=== PATIENT | male | born 1955 | race Caucasian/White ===

== ENCOUNTER 2017-04-06 22:24 | Emergency (ER) | payer SELFPAY ==
[~2017-04-06] VITALS: Ht 170.2 cm; Wt 60.0 kg
[2017-04-06 22:30] VITALS: BP 105/68; PULSE 89; RESP 18; TEMP 98.2; O2SAT 98
[2017-04-06] MEDS ORDERED: SODIUM CHLOR 0.9% 1000 ML INJ 1,000 ML IV SCH (22:41)
[2017-04-06 22:45] VITALS: O2SAT 97
[2017-04-06] MEDS ORDERED: SODIUM CHLORIDE 0.9% FLUSH 10 ML FLUSH IV FLUSH PRN (22:45)
[2017-04-06] MEDS ORDERED: THIAMINE INJ 100 MG in SODIUM CHLORIDE 0.9% INJ 100 ML IV ONE (22:45)
--- NOTE | 2017-04-06 22:46 | PD ---
HPI Chief Complaint: Alcohol/Drug Intoxication Time Seen by Provider: 22:41 Travel History International Travel<30 days: No Contact w/Intl Traveler<30days: No Traveled to known affect area: No History of Present Illness HPI The patient is a 7-year-old homeless male alcoholic who was in a bar today and got too drunk so that the credit authorizer called the ambulance to get rid of the patient. He denies any injury and is cooperative. Later, the patient states he fell and hit his right occipital area of the skull. He denies any C-spine, T -spine or LS-spine tenderness. The patient denies drinking any alcohol at all. The patient is wheelchair dependent. PFSH Past Medical History COPD: Yes Diminished Hearing: No Deep Vein Thrombosis: Yes (BILATERAL UPPER EXTREMITIES) GERD: Yes Hiatal Hernia: Yes Migraines: Yes Pancreatitis: Yes Seizures: Yes Past Surgical History Abdominal Surgery: Yes (HIATAL HERNIA REPAIR) Social History Alcohol Use: Yes (OCCASIONAL) Tobacco Use: Yes (03/10 PPD) Substance Use: No Allergies-Medications (Allergen,Severity, Reaction): Coded Allergies: acetaminophen (Unverified Allergy, Severe, 04/06/17) ampicillin (Unverified Allergy, Severe, 04/06/17) aspirin (Unverified Allergy, Severe, 04/06/17) butorphanol (Unverified Allergy, Severe, 04/06/17) chlordiazepoxide (Unverified Allergy, Severe, 04/06/17) codeine (Unverified Allergy, Severe, 04/06/17) diazepam (Unverified Allergy, Severe, 04/06/17) divalproex sodium (Unverified Allergy, Severe, 04/06/17) droperidol (Unverified Allergy, Severe, 04/06/17) hydrocodone (Unverified Allergy, Severe, 04/06/17) hydromorphone (Unverified Allergy, Severe, 04/06/17) hydroxyzine (Unverified Allergy, Severe, 04/06/17) ketorolac (Unverified Allergy, Severe, 04/06/17) lidocaine (Unverified Allergy, Severe, 04/06/17) lorazepam (Unverified Allergy, Severe, 04/06/17) methylprednisolone (Unverified Allergy, Severe, 04/06/17) metoclopramide (Unverified Allergy, Severe, 04/06/17) nalbuphine (Unverified Allergy, Severe, 04/06/17) ondansetron (Unverified Allergy, Severe, 04/06/17) oxycodone (Unverified Allergy, Severe, 04/06/17) penicillin G (Unverified Allergy, Severe, 04/06/17) procaine (Unverified Allergy, Severe, 04/06/17) prochlorperazine (Unverified Allergy, Severe, 04/06/17) propranolol (Unverified Allergy, Severe, 04/06/17) sumatriptan (Unverified Allergy, Severe, 04/06/17) tramadol (Unverified Allergy, Severe, 04/06/17) zolmitriptan (Unverified Allergy, Severe, 04/06/17) Reported Meds & Prescriptions Reported Meds & Active Scripts Active No Active Prescriptions or Reported Medications Review of Systems Except as stated in HPI: all other systems reviewed are Neg Physical Exam Exam Limitations: Intoxication Narrative GENERAL: The patient is alert and somewhat cooperative, intoxicated appearing in minimal apparent distress. He usually falls asleep but is easily arousable. SKIN: Focused skin assessment warm/dry. HEAD: There is tenderness without any associated deformity of the right occipital area. Normocephalic. EYES: Pupils equal and round. No scleral icterus. No injection or drainage. ENT: No nasal bleeding or discharge. Mucous membranes pink and moist. Neither tympanic membrane can be seen due to wax in both canals. There is neither raccoon eyes nor waters sign present. NECK: Trachea midline. No JVD. No C-spine tenderness or deformity is noted. CARDIOVASCULAR: Regular rate and rhythm. No murmur appreciated. RESPIRATORY: No accessory muscle use. Clear to auscultation. Breath sounds equal bilaterally. GASTROINTESTINAL: Abdomen soft, non-tender, nondistended. Hepatic and splenic margins not palpable. MUSCULOSKELETAL: No obvious deformities. No clubbing. No cyanosis. No edema. No T-spine or LS-spine tenderness or deformity is noted. NEUROLOGICAL: Awake and alert. No obvious cranial nerve deficits. Motor grossly within normal limits. Normal speech. PSYCHIATRIC: Appropriate mood and affect; insight and judgment normal. Data Data Last Documented VS Vital Signs Date Time Temp Pulse Resp B/P (MAP) Pulse Ox O2 Delivery O2 Flow Rate FiO2 04/06/17 23:18 Room Air 04/06/17 22:30 98.2 89 18 105/68 (80) 98 Orders Orders Complete Blood Count With Diff (04/06/17 22:41) Comprehensive Metabolic Panel (04/06/17 22:41) Blood Glucose (04/06/17 22:41) Ecg Monitoring (04/06/17 22:41) Iv Access Insert/Monitor (04/06/17 22:41) Oximetry (04/06/17 22:41) Sodium Chloride 0.9% Flush (Ns Flush) (04/06/17 22:45) Sodium Chlor 0.9% 1000 Ml Inj (Ns 1000 M (04/06/17 22:41) Thiamine Inj (Thiamine Inj) (04/06/17 22:45) Alcohol (Ethanol) (04/06/17 22:41) Ct Brain W/O Iv Contrast(Rout) (04/06/17 22:46) Labs Laboratory Tests Test 04/06/17 23:12 White Blood Count 6.3 TH/MM3 Red Blood Count 4.62 MIL/MM3 Hemoglobin 16.0 GM/DL Hematocrit 46.9 % Mean Corpuscular Volume 101.6 FL Mean Corpuscular Hemoglobin 34.6 PG Mean Corpuscular Hemoglobin Concent 34.1 % Red Cell Distribution Width 17.0 % Platelet Count 191 TH/MM3 Mean Platelet Volume 7.3 FL Neutrophils (%) (Auto) 55.0 % Lymphocytes (%) (Auto) 31.1 % Monocytes (%) (Auto) 9.2 % Eosinophils (%) (Auto) 4.3 % Basophils (%) (Auto) 0.4 % Neutrophils # (Auto) 3.5 TH/MM3 Lymphocytes # (Auto) 1.9 TH/MM3 Monocytes # (Auto) 0.6 TH/MM3 Eosinophils # (Auto) 0.3 TH/MM3 Basophils # (Auto) 0.0 TH/MM3 CBC Comment DIFF FINAL Differential Comment Blood Urea Nitrogen 9 MG/DL Creatinine 0.82 MG/DL Random Glucose 91 MG/DL Total Protein 6.8 GM/DL Albumin 3.8 GM/DL Calcium Level 8.1 MG/DL Alkaline Phosphatase 99 U/L Aspartate Amino Transf (AST/SGOT) 23 U/L Alanine Aminotransferase (ALT/SGPT) 22 U/L Total Bilirubin 0.5 MG/DL Sodium Level 138 MEQ/L Potassium Level 3.3 MEQ/L Chloride Level 103 MEQ/L Carbon Dioxide Level 28.1 MEQ/L Anion Gap 7 MEQ/L Estimat Glomerular Filtration Rate 96 ML/MIN Ethyl Alcohol Level 286 MG/DL [facility] Medical Decision Making Medical Screen Exam Complete: Yes Emergency Medical Condition: Yes Medical Record Reviewed: Yes Interpretation(s) The CT brain shows no acute intercranial abnormality. There is mucosal thickening in the left maxillary sinus, left ethmoid air cells. The CBC is normal except for an elevated MCV the and MCH consistent with chronic alcohol abuse. The alcohol level was 286. The complete metabolic profile shows potassium of 3.3, calcium 8.1 but is otherwise unremarkable. Differential Diagnosis Alcohol intoxication, electrolyte disorder, hepatic encephalopathy, intracranial bleed, skull fracture Narrative Course The patient has alcohol intoxication. He is obviously untruthful about his alcohol intake, he denied drinking any alcohol at all. He has no evidence for any intracranial bleed or skull fracture. Diagnosis Primary Impression: Alcohol intoxication Additional Instructions: Discontinue alcohol. If you have problems doing this use [facility]. Scripts No Active Prescriptions or Reported Meds Disposition: 01 DISCHARGE HOME Condition: Stable Cody Rizo MD Apr 06, 2017 22:46
[2017-04-06 23:42] LABS: AUTOMATED NEUTROPHIL # 3.5 TH/MM3 (1.8-7.7); BASOPHIL % 0.4 % (0.0-2.0); EOSINOPHIL # 0.3 TH/MM3 (0-0.4); EOSINOPHIL % 4.3 % (0.0-4.0); HEMATOCRIT 46.9 % (39.0-51.0); LYMPH % 31.1 % (9.0-44.0); LYMPHOCYTE # 1.9 TH/MM3 (1.0-4.8); MEAN CELL VOLUME 101.6 FL (80.0-100.0); MEAN CORPUSCULAR HEMOGLOBIN 34.6 PG (27.0-34.0); MEAN CORPUSCULAR HGB CONC 34.1 % (32.0-36.0); MEAN PLATELET VOLUME 7.3 FL (7.0-11.0); MONO % 9.2 % (0.0-8.0); MONOCYTE # 0.6 TH/MM3 (0-0.9); PLATELET COUNT 191 TH/MM3 (150-450); RED BLOOD COUNT 4.62 MIL/MM3 (4.50-5.90); WHITE BLOOD COUNT 6.3 TH/MM3 (4.0-11.0)
[2017-04-06 23:57] LABS: CHLORIDE 103 MEQ/L (98-107); SODIUM (NA) 138 MEQ/L (136-145)
[2017-04-07] LABS: CALCIUM 8.1 MG/DL (8.5-10.1)
[2017-04-07 00:01] LABS: ALBUMIN 3.8 GM/DL (3.4-5.0); BICARBONATE 28.1 MEQ/L (21.0-32.0); BLOOD UREA NITROGEN 9 MG/DL (7-18); GLUCOSE,RANDOM 91 MG/DL (74-106)
[2017-04-07 00:04] VITALS: BP 110/62; PULSE 87; RESP 18; O2SAT 98
[2017-04-07 00:04] LABS: ALT (GPT) 22 U/L (12-78); AST (GOT) 23 U/L (15-37); CREATININE 0.82 MG/DL (0.60-1.30); GLOMERULAR FILTRATION RATE 96 ML/MIN (>89)
[2017-04-07 00:05] LABS: TOTAL BILIRUBIN ADULT 0.5 MG/DL (0.2-1.0); TOTAL PROTEIN 6.8 GM/DL (6.4-8.2)
[2017-04-07 00:06] LABS: ALKALINE PHOSPHATASE 99 U/L (45-117)
--- NOTE | 2017-04-07 00:50 | RADRPT ---
EXAM DATE/TIME: 04/07/2017 00:06 [facility] COMPARISON: No previous studies available for comparison. INDICATIONS : Trauma, fall. RADIATION DOSE: 60.84 CTDIvol (mGy) MEDICAL HISTORY : None SURGICAL HISTORY : None. ENCOUNTER: Initial ACUITY: 1 day PAIN SCALE: 0/10 LOCATION: cranial TECHNIQUE: Multiple contiguous axial images were obtained of the head. Using automated exposure control and adj ustment of the mA and/or kV according to patient size, radiation dose was kept as low as reasonably a chievable to obtain optimal diagnostic quality images. DICOM format image data is available electro nically for review and comparison. FINDINGS: CEREBRUM: The ventricles are normal for age. No evidence of midline shift, mass lesion, hemorrhage or acute in farction. No extra-axial fluid collections are seen. POSTERIOR FOSSA: The cerebellum and brainstem are intact. The 4th ventricle is midline. The cerebellopontine angle i s unremarkable. EXTRACRANIAL: The visualized portion of the orbits is intact. SKULL: The calvaria is intact. No evidence of skull fracture. CONCLUSION: 1. No acute intracranial abnormalities. Mucosal thickening in the left maxillary sinus left ethmoid a ir cells. Andreas Ramirez MD on April 07, 2017 at 0:45 Board Certified Radiologist. This report was verified electronically.
[2017-04-07 05:00] VITALS: BP 111/63; TEMP 98.2
== END 2017-04-07 05:04 | disposition home or self-care (01) ==
LOC: PHED 22:24
DX: F10.129 Alcohol abuse with intoxication, unspecified (principal); F17.200 Nicotine dependence, unspecified, uncomplicated; Y90.8 Blood alcohol level of 240 mg/100 ml or more
CPT/HCPCS: 70450; 80053; 80307; 85025

== ENCOUNTER 2017-04-08 01:14 | Emergency (ER) | payer SELFPAY ==
[~2017-04-08] VITALS: Ht 182.9 cm; Wt 70.5 kg
[2017-04-08 01:19] VITALS: BP 124/76; PULSE 112; RESP 16; TEMP 98.9; O2SAT 96
[2017-04-08] MEDS ORDERED: PROMETHAZINE HCL 25 MG TAB PO ONE (02:00)
[2017-04-08] MEDS ORDERED: MORPHINE SULFATE 30 MG TAB PO ONE (02:00)
--- NOTE | 2017-04-08 02:00 | PD ---
HPI Chief Complaint: Edema Time Seen by Provider: 01:51 Travel History International Travel<30 days: No Contact w/Intl Traveler<30days: No Traveled to known affect area: No History of Present Illness HPI Patient is a 61-year-old homeless male with a history of diabetes presents emergency department with bilateral lower extremity swelling which he states he gets from his diabetes and the pain is severe. He states he is allergic to Tylenol and ibuprofen and only morphine and Phenergan work for him. He denies any chest pain shortness of breath abdominal pain nausea or vomiting today. Denies any history of orthopnea, he is wheelchair-bound secondary to chronic pain of his lower extremities but his doctors are telling him to walk more often. Symptoms are moderate, lower extremities, associated signs symptoms and contacts as above PFSH Past Medical History Cardiovascular Problems: Yes (MT x4) COPD: Yes Diabetes: Yes Patient Takes Glucophage: Yes Diminished Hearing: No Deep Vein Thrombosis: Yes (BILATERAL UPPER EXTREMITIES) GERD: Yes Hiatal Hernia: Yes Respiratory: Yes (COPD) Migraines: Yes Myocardial Infarction: Yes Pancreatitis: Yes Seizures: Yes Tetanus Vaccination: > 5 Years Influenza Vaccination: No Past Surgical History Abdominal Surgery: Yes (HIATAL HERNIA REPAIR) Social History Alcohol Use: Yes (OCCASIONAL) Tobacco Use: Yes (03/10 PPD) Substance Use: No Allergies-Medications (Allergen,Severity, Reaction): Coded Allergies: acetaminophen (Unverified Allergy, Severe, 04/06/17) ampicillin (Unverified Allergy, Severe, 04/06/17) aspirin (Unverified Allergy, Severe, 04/06/17) butorphanol (Unverified Allergy, Severe, 04/06/17) chlordiazepoxide (Unverified Allergy, Severe, 04/06/17) codeine (Unverified Allergy, Severe, 04/06/17) diazepam (Unverified Allergy, Severe, 04/06/17) divalproex sodium (Unverified Allergy, Severe, 04/06/17) droperidol (Unverified Allergy, Severe, 04/06/17) hydrocodone (Unverified Allergy, Severe, 04/06/17) hydromorphone (Unverified Allergy, Severe, 04/06/17) hydroxyzine (Unverified Allergy, Severe, 04/06/17) ketorolac (Unverified Allergy, Severe, 04/06/17) lidocaine (Unverified Allergy, Severe, 04/06/17) lorazepam (Unverified Allergy, Severe, 04/06/17) methylprednisolone (Unverified Allergy, Severe, 04/06/17) metoclopramide (Unverified Allergy, Severe, 04/06/17) nalbuphine (Unverified Allergy, Severe, 04/06/17) ondansetron (Unverified Allergy, Severe, 04/06/17) oxycodone (Unverified Allergy, Severe, 04/06/17) penicillin G (Unverified Allergy, Severe, 04/06/17) procaine (Unverified Allergy, Severe, 04/06/17) prochlorperazine (Unverified Allergy, Severe, 04/06/17) propranolol (Unverified Allergy, Severe, 04/06/17) sumatriptan (Unverified Allergy, Severe, 04/06/17) tramadol (Unverified Allergy, Severe, 04/06/17) zolmitriptan (Unverified Allergy, Severe, 04/06/17) Reported Meds & Prescriptions Reported Meds & Active Scripts Active No Active Prescriptions or Reported Medications Review of Systems Except as stated in HPI: all other systems reviewed are Neg Physical Exam Narrative GENERAL: Well-nourished, well-developed patient. SKIN: Focused skin assessment warm/dry. HEAD: Normocephalic. EYES: No scleral icterus. No injection or drainage. NECK: Supple, trachea midline. No JVD or lymphadenopathy. CARDIOVASCULAR: Regular rate and rhythm without murmurs, gallops, or rubs. RESPIRATORY: Breath sounds equal bilaterally. No accessory muscle use. GASTROINTESTINAL: Abdomen soft, non-tender, nondistended. MUSCULOSKELETAL: No cyanosis, or bilateral lower extremity edema from the mid tibia distally. Pulses motor and sensory intact distally in all 4 extremities. No gross deformity BACK: Nontender without obvious deformity. No CVA tenderness. Data Data Last Documented VS Vital Signs Date Time Temp Pulse Resp B/P (MAP) Pulse Ox O2 Delivery O2 Flow Rate FiO2 04/08/17 06:49 78 18 127/78 (94) 100 Nasal Cannula 2.00 04/08/17 01:19 98.9 Orders Orders Us Leg Venous Doppler Bilat (04/08/17 01:57) Morphine Ir (Msir) (04/08/17 02:00) Promethazine (Phenergan) (04/08/17 02:00) Ed Discharge Order (04/08/17 03:51) [facility] Medical Decision Making Medical Screen Exam Complete: Yes Emergency Medical Condition: Yes Differential Diagnosis DVT possible but seems unlikely, chronic dependent edema, CHF unlikely, poor social circumstance. Narrative Course Patient roomed in the emergency department given morphine and Phenergan per his request as he has multiple other allergies. He appears to have no medical complaint that warrants extensive workup, Last 24 hours Impressions Lower Extremity Ultrasound 04/08/17 0157 Signed Impressions: Service Date/Time: Saturday, April 08, 2017 02:59 - CONCLUSION: Normal examination. Nate Elkins MD On reassessment the patient sleeping soundly, is tolerated p.o. in the emergency department. Will be discharged to follow-up with his primary care provider at the [facility]. Diagnosis Primary Impression: Leg swelling Referrals: [facility] No Active Prescriptions or Reported Meds Disposition: 01 DISCHARGE HOME Condition: Nasir Thomas MD Apr 08, 2017 02:00
--- NOTE | 2017-04-08 03:33 | RADRPT ---
EXAM DATE/TIME: 04/08/2017 02:59 [facility] COMPARISON: No previous studies available for comparison. INDICATIONS : Bilateral leg swelling. MEDICAL HISTORY : Myocardial infarction. Deep venous thrombosis. Parkinson's. CVA x5. Seizures. Migraines. COPD. Hiatal hernia. Diabetes. GERD. Tobacco use. Anticoagulant therapy, Lovenox. SURGICAL HISTORY : Hiatal hernia repair. ENCOUNTER: Initial ACUITY: 1 week PAIN SCORE: 10/10 LOCATION: Bilateral leg. TECHNIQUE: Venous ultrasound of the left and right leg was performed from the inguinal ligament to the proximal calf. Real-time, color Doppler and spectral tracing, compression and augmentation techniques were us ed. FINDINGS: RIGHT LEG: There is normal compressibility of the deep venous system from the inguinal region to the proximal ca lf. No echogenic clot is seen in the lumen of the common femoral, femoral, popliteal, and posterior tibial veins. There is a normal response of the venous system to proximal and distal augmentation an d respiration. LEFT LEG: There is normal compressibility of the deep venous system from the inguinal region to the proximal ca lf. No echogenic clot is seen in the lumen of the common femoral, femoral, popliteal, and posterior tibial veins. There is a normal response of the venous system to proximal and distal augmentation an d respiration. CONCLUSION: Normal examination. Nate Elkins MD on April 08, 2017 at 3:31 Board Certified Radiologist. This report was verified electronically.
[2017-04-08 06:49] VITALS: BP 127/78; PULSE 78; RESP 18; O2SAT 100
[2017-04-08 07:30] VITALS: BP 116/73; PULSE 67; RESP 18; O2SAT 94
== END 2017-04-08 08:44 | disposition home or self-care (01) ==
LOC: NEPE 01:14
DX: M79.89 Other specified soft tissue disorders (principal); J44.9 Chronic obstructive pulmonary disease, unspecified; E11.9 Type 2 diabetes mellitus without complications; I25.2 Old myocardial infarction; G89.29 Other chronic pain; G20 Parkinson's disease; F17.210 Nicotine dependence, cigarettes, uncomplicated; Z86.73 Personal history of transient ischemic attack (TIA), and cerebral infarction without residual deficits; Z86.718 Personal history of other venous thrombosis and embolism; Z88.6 Allergy status to analgesic agent; Z88.0 Allergy status to penicillin; Z88.8 Allergy status to other drugs, medicaments and biological substances
CPT/HCPCS: 93970; 99284; Q0169

== ENCOUNTER 2017-04-12 00:13 | Emergency (ER) | payer SELFPAY ==
[2017-04-12 00:16] VITALS: BP 127/68; PULSE 84; RESP 18; TEMP 97.8; O2SAT 96
[2017-04-12] MEDS ORDERED: VENTAER INH (01:46)
[2017-04-12] MEDS ORDERED: DILA30CA PO (01:46)
--- NOTE | 2017-04-12 01:55 | PD ---
HPI Chief Complaint: Edema Time Seen by Provider: 01:16 Travel History International Travel<30 days: No Contact w/Intl Traveler<30days: No Traveled to known affect area: No History of Present Illness HPI The patient is a 61 year old male who presents to the [facility] emergency department with a history of lower extremity edema, pain, burning that has been gradually getting worse with time. The patient was last seen in the emergency department regarding the symptoms on April 08, 2017. The patient had a bilateral lower extremity ultrasound of the legs done at that time that was negative for DVT. The patient reports that he is visiting from [place]. He reports that he has been here for the last 6-1/2-7 months. He reports that his aunt and uncle are saving up money to get him back home on an [employer] train. The patient reports that he is out of all of his medications. He tried to follow up with the [facility], however he was unable to do so because they would not take his insurance according to his report. Review of systems otherwise, the patient denies having any known recent fevers, cough, congestion , neck pain, chest pain, shortness of breath, abdominal pain, vomiting, diarrhea , urinary symptoms, or other neurologic symptoms. [facility] Past Medical History Narrative Medical The patient's past medical history is significant for stuttering, history of COPD and asthma, history of DVT of his upper extremities, acid reflux, pancreatitis, history of a hiatal hernia status post repair, history of seizure disorder. Cardiovascular Problems: Yes ([place] x4) COPD: Yes Diabetes: Yes Patient Takes Glucophage: No Diminished Hearing: No Deep Vein Thrombosis: Yes (BILATERAL UPPER EXTREMITIES) GERD: Yes Hiatal Hernia: Yes Respiratory: Yes (COPD) Migraines: Yes Myocardial Infarction: Yes Pancreatitis: Yes Seizures: Yes Past Surgical History Narrative Surgical The patient's past surgical history is significant for hiatal hernia repair, 2 toes that were amputated from the left foot. Abdominal Surgery: Yes (HIATAL HERNIA REPAIR) Social History Alcohol Use: Yes (1-2 beers per day) Tobacco Use: Yes (1/2 PPD) Substance Use: No Allergies-Medications (Allergen,Severity, Reaction): Coded Allergies: acetaminophen (Unverified Allergy, Severe, 04/12/17) ampicillin (Unverified Allergy, Severe, 04/12/17) aspirin (Unverified Allergy, Severe, 04/12/17) butorphanol (Unverified Allergy, Severe, 04/12/17) chlordiazepoxide (Unverified Allergy, Severe, 04/12/17) codeine (Unverified Allergy, Severe, 04/12/17) diazepam (Unverified Allergy, Severe, 04/12/17) divalproex sodium (Unverified Allergy, Severe, 04/12/17) droperidol (Unverified Allergy, Severe, 04/12/17) hydrocodone (Unverified Allergy, Severe, 04/12/17) hydromorphone (Unverified Allergy, Severe, 04/12/17) hydroxyzine (Unverified Allergy, Severe, 04/12/17) ketorolac (Unverified Allergy, Severe, 04/12/17) lidocaine (Unverified Allergy, Severe, 04/12/17) lorazepam (Unverified Allergy, Severe, 04/12/17) methylprednisolone (Unverified Allergy, Severe, 04/12/17) metoclopramide (Unverified Allergy, Severe, 04/12/17) nalbuphine (Unverified Allergy, Severe, 04/12/17) ondansetron (Unverified Allergy, Severe, 04/12/17) oxycodone (Unverified Allergy, Severe, 04/12/17) penicillin G (Unverified Allergy, Severe, 04/12/17) procaine (Unverified Allergy, Severe, 04/12/17) prochlorperazine (Unverified Allergy, Severe, 04/12/17) propranolol (Unverified Allergy, Severe, 04/12/17) sumatriptan (Unverified Allergy, Severe, 04/12/17) tramadol (Unverified Allergy, Severe, 04/12/17) zolmitriptan (Unverified Allergy, Severe, 04/12/17) Reported Meds & Prescriptions Reported Meds & Active Scripts Active Gabapentin 100 Mg Cap 100 Mg PO TID Reported Ventolin Hfa 18 GM Inh (Albuterol Sulfate) 90 Mcg/Act Aer 2 Puff INH Q4-6H PRN Dilantin (Phenytoin Extended) 30 Mg Cap 30 Mg PO TID Review of Systems Except as stated in HPI: all other systems reviewed are Neg General / Constitutional: No: Fever Eyes: No: Visual changes HENT: No: Headaches Cardiovascular: No: Chest Pain or Discomfort Respiratory: No: Shortness of Breath Gastrointestinal: No: Nausea, Vomiting, Diarrhea, Abdominal Pain Genitourinary: No: Dysuria Musculoskeletal: Positive: Edema, Pain Skin: No Rash Neurologic: Positive: Paresthesia, No: Weakness, Focal Abnormalities, Change in Mentation, Slurred Speech, Sensory Disturbance Psychiatric: No: Depression Endocrine: No: Polydipsia Hematologic/Lymphatic: No: Easy Bruising Physical Exam Narrative General: The patient is a well-developed well-nourished male in no acute distress. The patient is disheveled appearing on examination. The patient has a motorized chair at the bedside. Head and Neck exam: Head is normocephalic atraumatic. Eyes: EOMI, pupils are equal round and reactive to light. Nose: Midline septum with pink mucous membranes Mouth: Dentition unremarkable. Moist mucus membranes. Posterior oropharynx is not erythematous. No tonsillar hypertrophy. Uvula midline. Airway patent. Neck: No palpable lymphadenopathy. No nuchal rigidity. No thyromegaly. Cardiovascular: Regular rate and rhythm without murmurs, gallops, or rubs. Lungs: Clear to auscultation bilaterally. No wheezes, rhonchi, or rales. Abdomen: Soft, without tenderness to palpation in all 4 quadrants of the abdomen. No guarding, rebound, or rigidity. Normal bowel sounds are audible. No tenderness on palpation of McBurney's point. Extremities: No clubbing or cyanosis. The patient has trace pedal edema bilateral lower extremities. 2+ pulses in all 4 extremities. Less than 3 second capillary refill. The patient is missing 2 digits of the right foot. The patient is noted to have thickened toenails on bilateral feet consistent with onychomycosis. The patient has dry flaky skin on bilateral feet. No increased warmth or crepitus on palpation. Back: No spinous process tenderness to palpation. No costovertebral angle tenderness to palpation. Neurologic Exam: Grossly nonfocal. The patient has stuttering speech. Skin Exam: No rash noted. Intact skin that is warm and dry. Data Data Last Documented VS Vital Signs Date Time Temp Pulse Resp B/P (MAP) Pulse Ox O2 Delivery O2 Flow Rate FiO2 2/6/18 00:16 97.8 84 18 127/68 (87) 96 Orders Orders Electrocardiogram (04/12/17 01:18) Complete Blood Count With Diff (04/12/17 01:18) Comprehensive Metabolic Panel (04/12/17 01:18) B-Type Natriuretic Peptide (04/12/17 01:18) Urinalysis - C+S If Indicated (04/12/17 01:18) Thyroid Stimulating Hormone (04/12/17 01:18) Iv Access Insert/Monitor (04/12/17 01:18) Ecg Monitoring (04/12/17 01:18) Oximetry (04/12/17 01:18) Prothrombin Time / Inr (Pt) (04/12/17 01:47) Act Partial Throm Time (Ptt) (04/12/17 01:47) Phenytoin (Dilantin) (04/12/17 02:00) Gabapentin (Neurontin) (04/12/17 03:15) Potassium Chloride (Kcl) (04/12/17 03:15) Labs Laboratory Tests Test 04/12/17 02:00 04/12/17 02:20 White Blood Count 4.6 TH/MM3 Red Blood Count 4.55 MIL/MM3 Hemoglobin 16.2 GM/DL Hematocrit 46.0 % Mean Corpuscular Volume 101.1 FL Mean Corpuscular Hemoglobin 35.6 PG Mean Corpuscular Hemoglobin Concent 35.3 % Red Cell Distribution Width 16.6 % Platelet Count 199 TH/MM3 Mean Platelet Volume 6.6 FL Neutrophils (%) (Auto) 42.7 % Lymphocytes (%) (Auto) 39.7 % Monocytes (%) (Auto) 10.6 % Eosinophils (%) (Auto) 6.0 % Basophils (%) (Auto) 1.0 % Neutrophils # (Auto) 1.9 TH/MM3 Lymphocytes # (Auto) 1.8 TH/MM3 Monocytes # (Auto) 0.5 TH/MM3 Eosinophils # (Auto) 0.3 TH/MM3 Basophils # (Auto) 0.0 TH/MM3 CBC Comment DIFF FINAL Differential Comment Blood Urea Nitrogen 7 MG/DL Creatinine 0.84 MG/DL Random Glucose 81 MG/DL Total Protein 7.9 GM/DL Albumin 4.3 GM/DL Calcium Level 8.8 MG/DL Alkaline Phosphatase 130 U/L Aspartate Amino Transf (AST/SGOT) 39 U/L Alanine Aminotransferase (ALT/SGPT) 28 U/L Total Bilirubin 0.6 MG/DL Sodium Level 138 MEQ/L Potassium Level 3.3 MEQ/L Chloride Level 101 MEQ/L Carbon Dioxide Level 31.8 MEQ/L Anion Gap 5 MEQ/L Estimat Glomerular Filtration Rate 93 ML/MIN B-Type Natriuretic Peptide 44 PG/ML Thyroid Stimulating Hormone 3rd Gen 1.870 uIU/ML Phenytoin (Dilantin) Level 0.6 MCG/ML Urine Color COLORLESS Urine Turbidity CLEAR Urine pH 6.5 Urine Specific [place] 1.001 Urine Protein NEG mg/dL Urine Glucose (UA) NEG mg/dL Urine Ketones NEG mg/dL Urine Occult Blood NEG Urine Nitrite NEG Urine Bilirubin NEG Urine Urobilinogen LESS THAN 2.0 MG/DL Urine Leukocyte Esterase NEG Urine RBC 1 /hpf Urine WBC 1 /hpf Microscopic Urinalysis Comment CULT NOT INDICATED MDM Medical Decision Making Medical Screen Exam Complete: Yes Emergency Medical Condition: Yes Medical Record Reviewed: Yes Differential Diagnosis DVT, versus hypoalbuminemia from poor nutrition, versus cellulitis, versus hypothyroid disorder, versus congestive heart failure, versus peripheral neuropathy Narrative Course During the course of the patient's emergency department visit, the patient's history, examination, and differential diagnosis were reviewed with the patient. The patient was placed on a leather sorter with oximetry and frequent blood pressure monitoring. The patient had IV access obtained and blood work sent for analysis. The patient had an EKG done that shows a sinus rhythm heart rate of 77, no acute ST segment elevation. QRS duration is 97 ms, QTC 444 milliseconds. The patient was initially provided gabapentin 100 mg p.o. 1. The patient's laboratory studies were reviewed and remarkable for a white count of 4.6, hemoglobin 16.2, platelets 199 with 10.6 monocytes, CMP is remarkable for potassium of 3.3 which was supplemented orally, AST 39, alk phos 130, albumin 4.3, TSH 1.87, BNP 44, Dilantin level 0.6, urinalysis is unremarkable The patient's electronic medical record was reviewed and on April 08 the patient had bilateral lower extremity ultrasounds that were negative for DVT. The patient's symptoms are most consistent with a peripheral neuropathy, possibly related to alcohol intake. I recommended that he decrease his alcohol intake. The patient was given a prescription for gabapentin and instructed to follow-up with her primary care physician for continued care. The patient is instructed to elevate his legs frequently. The patient is instructed to wear compression stockings. The patient is resting comfortably and feels better, is alert and in no distress. The patient's results and examination findings were discussed with the patient. The repeat examination is unremarkable and benign. The history, exam, diagnostic testing, and current condition do not suggest any significant pathology to warrant further testing, continued ED treatment, admission, or surgical evaluation at this point. The vital signs have been stable. The patient does not have uncontrollable pain, intractable vomiting, or other significant symptoms. The patient's condition is stable and appropriate for discharge. The patient will pursue further outpatient evaluation with a primary care physician or other designated or consulting physician as indicated in the discharge instructions. The patient expressed understanding and was agreeable with this plan. Diagnosis Primary Impression: Leg edema Additional Impression: Neuropathy Referrals: Primary Care Physician 2 days Med/Other Pt SpecificInfo: Prescription(s) given Scripts Gabapentin (Gabapentin) 100 Mg Cap 100 MG PO TID, #30 CAP 0 Refills Prov: Anum Liu MD 04/12/17 Disposition: 01 DISCHARGE HOME Condition: Stable Anum Liu MD Apr 12, 2017 01:55
[2017-04-12 02:47] LABS: BILIRUBIN, URINE NEG (NEG); BLOOD, URINE NEG (NEG); GLUCOSE,URINE NEG (NEG); KETONE, URINE NEG (NEG); NITRITE,URINE NEG (NEG); PH, URINE 6.5 (5.0-8.5); URINE COLOR COLORLESS (YELLW/STRAW); URINE LEUKOCYTE ESTERASE NEG (NEG)
[2017-04-12 02:53] LABS: AUTOMATED NEUTROPHIL # 1.9 TH/MM3 (1.8-7.7); EOSINOPHIL # 0.3 TH/MM3 (0-0.4); HEMOGLOBIN 16.2 GM/DL (13.0-17.0); LYMPH % 39.7 % (9.0-44.0); LYMPHOCYTE # 1.8 TH/MM3 (1.0-4.8); MEAN CELL VOLUME 101.1 FL (80.0-100.0); MEAN CORPUSCULAR HEMOGLOBIN 35.6 PG (27.0-34.0); MEAN CORPUSCULAR HGB CONC 35.3 % (32.0-36.0); MEAN PLATELET VOLUME 6.6 FL (7.0-11.0); MONO % 10.6 % (0.0-8.0); MONOCYTE # 0.5 TH/MM3 (0-0.9); NEUT % 42.7 % (16.0-70.0); PLATELET COUNT 199 TH/MM3 (150-450); RED BLOOD COUNT 4.55 MIL/MM3 (4.50-5.90); RED CELL DISTRIBUTION WIDTH 16.6 % (11.6-17.2); WHITE BLOOD COUNT 4.6 TH/MM3 (4.0-11.0)
[2017-04-12 03:03] LABS: ALBUMIN 4.3 GM/DL (3.4-5.0); ALT (GPT) 28 U/L (12-78); AST (GOT) 39 U/L (15-37); BICARBONATE 31.8 MEQ/L (21.0-32.0); BLOOD UREA NITROGEN 7 MG/DL (7-18); CALCIUM 8.8 MG/DL (8.5-10.1); CHLORIDE 101 MEQ/L (98-107); CREATININE 0.84 MG/DL (0.60-1.30); GLOMERULAR FILTRATION RATE 93 ML/MIN (>89); GLUCOSE,RANDOM 81 MG/DL (74-106); SODIUM (NA) 138 MEQ/L (136-145)
[2017-04-12] MEDS ORDERED: GABA100C4 PO (03:11)
[2017-04-12 03:12] LABS: ALKALINE PHOSPHATASE 130 U/L (45-117); PHENYTOIN (DILANTIN) 0.6 MCG/ML (10.0-20.0); TOTAL BILIRUBIN ADULT 0.6 MG/DL (0.2-1.0); TOTAL PROTEIN 7.9 GM/DL (6.4-8.2)
[2017-04-12] MEDS ORDERED: POTASSIUM CHLORIDE 20 MEQ CONTROLLED RELEASE TAB PO ONE (03:15)
[2017-04-12] MEDS ORDERED: GABAPENTIN 100 MG CAP PO ONE (03:15)
--- NOTE | 2017-04-12 14:36 | EKG ---
Date Performed: 04/12/2017 Time Performed: 03:22:23 PTAGE: 61 years EKG: Sinus rhythm NORMAL ECG INTERPRETATION BASED ON A DEFAULT AGE OF 41 YEARS NO PREVIOUS TRACING DOCTOR: Goldy Baker Interpretating Date/Time 04/12/2017 14:30:38
== END 2017-04-12 04:15 | disposition home or self-care (01) ==
LOC: NEPD 00:13 → NEPE 04:15
DX: R60.0 Localized edema (principal); E11.40 Type 2 diabetes mellitus with diabetic neuropathy, unspecified; J44.9 Chronic obstructive pulmonary disease, unspecified; G40.909 Epilepsy, unspecified, not intractable, without status epilepticus; F17.200 Nicotine dependence, unspecified, uncomplicated; I25.2 Old myocardial infarction
CPT/HCPCS: 80053; 80185; 81001; 83880; 84443; 85025; 93005

== ENCOUNTER 2017-04-29 23:57 | Emergency (ER) | payer SELFPAY ==
[~2017-04-29] VITALS: Ht 165.1 cm; Wt 72.0 kg
[~2017-04-29 23:57] MED LIST: DILA30CA PO; GABA100C4 PO; VENTAER INH
[2017-04-30 00:13] VITALS: BP 148/80; PULSE 88; RESP 16; TEMP 98.8; O2SAT 96
--- NOTE | 2017-04-30 02:36 | PD ---
HPI Chief Complaint: Edema Time Seen by Provider: 01:21 Travel History International Travel<30 days: No Contact w/Intl Traveler<30days: No Traveled to known affect area: No History of Present Illness HPI Patient comes frequently to the ER usually to sleep he brings a stuffed animal with him and sleeps tonight he is complaining of lower leg edema however he chronically comes in complaining of similar is no obvious swelling or acute issue at this time patient is comfortable he sleeping when I come into the exam room holding his stuffed rabbit PFSH Past Medical History Cardiovascular Problems: Yes ([place] x4) COPD: Yes Diabetes: Yes Patient Takes Glucophage: No Diminished Hearing: No Deep Vein Thrombosis: Yes (BILATERAL UPPER EXTREMITIES) GERD: Yes Hiatal Hernia: Yes Respiratory: Yes (COPD) Immunizations Current: Yes Migraines: Yes Myocardial Infarction: Yes Pancreatitis: Yes Seizures: Yes Tetanus Vaccination: Unknown Influenza Vaccination: No Past Surgical History Abdominal Surgery: Yes (HIATAL HERNIA REPAIR) Social History Alcohol Use: Yes (1-2 beers per day) Tobacco Use: Yes (1/2 PPD) Substance Use: No Allergies-Medications (Allergen,Severity, Reaction): Coded Allergies: acetaminophen (Unverified Allergy, Severe, 04/30/17) ampicillin (Unverified Allergy, Severe, 04/30/17) aspirin (Unverified Allergy, Severe, 04/30/17) butorphanol (Unverified Allergy, Severe, 04/30/17) chlordiazepoxide (Unverified Allergy, Severe, 04/30/17) codeine (Unverified Allergy, Severe, 04/30/17) diazepam (Unverified Allergy, Severe, 04/30/17) divalproex sodium (Unverified Allergy, Severe, 04/30/17) droperidol (Unverified Allergy, Severe, 04/30/17) hydrocodone (Unverified Allergy, Severe, 04/30/17) hydromorphone (Unverified Allergy, Severe, 04/30/17) hydroxyzine (Unverified Allergy, Severe, 04/30/17) ketorolac (Unverified Allergy, Severe, 04/30/17) lidocaine (Unverified Allergy, Severe, 04/30/17) lorazepam (Unverified Allergy, Severe, 04/30/17) methylprednisolone (Unverified Allergy, Severe, 04/30/17) metoclopramide (Unverified Allergy, Severe, 04/30/17) nalbuphine (Unverified Allergy, Severe, 04/30/17) ondansetron (Unverified Allergy, Severe, 04/30/17) oxycodone (Unverified Allergy, Severe, 04/30/17) penicillin G (Unverified Allergy, Severe, 04/30/17) procaine (Unverified Allergy, Severe, 04/30/17) prochlorperazine (Unverified Allergy, Severe, 04/30/17) propranolol (Unverified Allergy, Severe, 04/30/17) sumatriptan (Unverified Allergy, Severe, 04/30/17) tramadol (Unverified Allergy, Severe, 04/30/17) zolmitriptan (Unverified Allergy, Severe, 04/30/17) Reported Meds & Prescriptions Reported Meds & Active Scripts Active Gabapentin 100 Mg Cap 100 Mg PO TID Reported Ventolin Hfa 18 GM Inh (Albuterol Sulfate) 90 Mcg/Act Aer 2 Puff INH Q4-6H PRN Dilantin (Phenytoin Extended) 30 Mg Cap 30 Mg PO TID Physical Exam Narrative GENERAL: Patient is unkempt and appears unclean as well SKIN: Warm and dry. HEAD: Atraumatic. Normocephalic. EYES: Pupils equal and round. No scleral icterus. No injection or drainage. ENT: No nasal bleeding or discharge. Mucous membranes pink and moist. NECK: Trachea midline. No JVD. CARDIOVASCULAR: Regular rate and rhythm. RESPIRATORY: No accessory muscle use. Clear to auscultation. Breath sounds equal bilaterally. GASTROINTESTINAL: Abdomen soft, non-tender, nondistended. Hepatic and splenic margins not palpable. MUSCULOSKELETAL: Extremities mild bilateral pedal edema without clubbing, cyanosis, or edema. No obvious deformities. NEUROLOGICAL: Awake and alert. No obvious cranial nerve deficits. Motor grossly within normal limits. Five out of 5 muscle strength in the arms and legs. Normal speech. PSYCHIATRIC: Appropriate mood and affect; insight and judgment normal. Data Data Last Documented VS Vital Signs Date Time Temp Pulse Resp B/P (MAP) Pulse Ox O2 Delivery O2 Flow Rate FiO2 04/30/17 06:13 04/30/17 00:13 98.8 88 16 96 Room Air Orders Orders Ed Discharge Order (04/30/17 06:10) MDM Medical Decision Making Medical Screen Exam Complete: Yes Emergency Medical Condition: Yes Differential Diagnosis homeless malingering , chronic mild edema of valvular incompetence other Narrative Course sleeps and ambulates without problem and is d/c to follow up [facility] loi paper given Diagnosis Primary Impression: Peripheral edema Patient Instructions: General Instructions, Leg Edema (ED) Disposition: 01 DISCHARGE HOME Condition: Good Ash Newton MD Apr 30, 2017 02:36
== END 2017-04-30 06:26 | disposition home or self-care (01) ==
LOC: NEPE 23:57
DX: R60.0 Localized edema (principal); I25.2 Old myocardial infarction; J44.9 Chronic obstructive pulmonary disease, unspecified; E11.9 Type 2 diabetes mellitus without complications; K21.9 Gastro-esophageal reflux disease without esophagitis; R56.9 Unspecified convulsions; F17.200 Nicotine dependence, unspecified, uncomplicated; Z86.718 Personal history of other venous thrombosis and embolism; Z87.19 Personal history of other diseases of the digestive system
CPT/HCPCS: 99281

== ENCOUNTER 2017-05-02 23:15 | Emergency (ER) | payer OTHER ==
[~2017-05-02] VITALS: Ht 182.9 cm; Wt 71.4 kg
[2017-05-02 23:50] VITALS: BP 137/73; PULSE 92; RESP 20; TEMP 98.7; O2SAT 99
--- NOTE | 2017-05-03 00:26 | PD ---
HPI Chief Complaint: Psychiatric Symptoms Time Seen by Provider: 23:52 Travel History International Travel<30 days: No Contact w/Intl Traveler<30days: No Traveled to known affect area: No History of Present Illness HPI Patient is a 61-year-old male presenting to emergency department under Melo act for psychiatric evaluation. Patient according to the Melo act was driving his wheelchair into oncoming traffic. He then was allegedly stating that he missed his mother and wanted to be with her. Patient denies being suicidal. He denies any illicit drug use, alcohol use. He states that he was not driving his wheelchair into the traffic. Patient is tearful and appears intoxicated. H &P is limited due to intoxication. PFSH Past Medical History Cardiovascular Problems: Yes (IN x4) COPD: Yes Diabetes: Yes Diminished Hearing: No Deep Vein Thrombosis: Yes (BILATERAL UPPER EXTREMITIES) GERD: Yes Hiatal Hernia: Yes Respiratory: Yes (COPD) Immunizations Current: Yes Migraines: Yes Myocardial Infarction: Yes Pancreatitis: Yes Seizures: Yes Past Surgical History Abdominal Surgery: Yes (HIATAL HERNIA REPAIR) Social History Alcohol Use: Yes (1-2 beers per day) Tobacco Use: Yes (1/2 PPD) Substance Use: No Allergies-Medications (Allergen,Severity, Reaction): Coded Allergies: acetaminophen (Unverified Allergy, Severe, 04/30/17) ampicillin (Unverified Allergy, Severe, 04/30/17) aspirin (Unverified Allergy, Severe, 04/30/17) butorphanol (Unverified Allergy, Severe, 04/30/17) chlordiazepoxide (Unverified Allergy, Severe, 04/30/17) codeine (Unverified Allergy, Severe, 04/30/17) diazepam (Unverified Allergy, Severe, 04/30/17) divalproex sodium (Unverified Allergy, Severe, 04/30/17) droperidol (Unverified Allergy, Severe, 04/30/17) hydrocodone (Unverified Allergy, Severe, 04/30/17) hydromorphone (Unverified Allergy, Severe, 04/30/17) hydroxyzine (Unverified Allergy, Severe, 04/30/17) ketorolac (Unverified Allergy, Severe, 04/30/17) lidocaine (Unverified Allergy, Severe, 04/30/17) lorazepam (Unverified Allergy, Severe, 04/30/17) methylprednisolone (Unverified Allergy, Severe, 04/30/17) metoclopramide (Unverified Allergy, Severe, 04/30/17) nalbuphine (Unverified Allergy, Severe, 04/30/17) ondansetron (Unverified Allergy, Severe, 04/30/17) oxycodone (Unverified Allergy, Severe, 04/30/17) penicillin G (Unverified Allergy, Severe, 04/30/17) procaine (Unverified Allergy, Severe, 04/30/17) prochlorperazine (Unverified Allergy, Severe, 04/30/17) propranolol (Unverified Allergy, Severe, 04/30/17) sumatriptan (Unverified Allergy, Severe, 04/30/17) tramadol (Unverified Allergy, Severe, 04/30/17) zolmitriptan (Unverified Allergy, Severe, 04/30/17) Reported Meds & Prescriptions Reported Meds & Active Scripts Active Gabapentin 100 Mg Cap 100 Mg PO TID Reported Ventolin Hfa 18 GM Inh (Albuterol Sulfate) 90 Mcg/Act Aer 2 Puff INH Q4-6H PRN Dilantin (Phenytoin Extended) 30 Mg Cap 30 Mg PO TID Review of Systems Except as stated in HPI: all other systems reviewed are Neg Psychiatric: Positive: Suicidal Ideations, Substance Abuse Physical Exam Narrative GENERAL: Disheveled, thin, elderly male. SKIN: Warm and dry. HEAD: Atraumatic. Normocephalic. EYES: Pupils equal and round. No scleral icterus. No injection or drainage. ENT: No nasal bleeding or discharge. Mucous membranes pink and moist. NECK: Trachea midline. No JVD. CARDIOVASCULAR: Regular rate and rhythm. RESPIRATORY: No accessory muscle use. Clear to auscultation. Breath sounds equal bilaterally. GASTROINTESTINAL: Abdomen soft, non-tender, nondistended. Hepatic and splenic margins not palpable. MUSCULOSKELETAL: Extremities without clubbing, cyanosis, or edema. No obvious deformities. NEUROLOGICAL: Awake and alert. No obvious cranial nerve deficits. Motor grossly within normal limits. Normal speech. PSYCHIATRIC: Appropriate mood and affect; insight and judgment impaired. Data Data Last Documented VS Vital Signs Date Time Temp Pulse Resp B/P (MAP) Pulse Ox O2 Delivery O2 Flow Rate FiO2 05/02/17 23:50 98.7 92 20 137/73 (94) 99 Orders Orders Complete Blood Count With Diff (05/03/17 00:12) Comprehensive Metabolic Panel (05/03/17 00:12) Psych Screen (05/03/17 00:12) Drug Screen, Random Urine (05/03/17 00:12) Alcohol (Ethanol) (05/03/17 00:12) Labs Laboratory Tests Test 05/03/17 00:30 White Blood Count 5.4 TH/MM3 Red Blood Count 4.74 MIL/MM3 Hemoglobin 17.3 GM/DL Hematocrit 48.0 % Mean Corpuscular Volume 101.4 FL Mean Corpuscular Hemoglobin 36.4 PG Mean Corpuscular Hemoglobin Concent 35.9 % Red Cell Distribution Width 16.4 % Platelet Count 225 TH/MM3 Mean Platelet Volume 7.1 FL Neutrophils (%) (Auto) 40.9 % Lymphocytes (%) (Auto) 41.4 % Monocytes (%) (Auto) 10.7 % Eosinophils (%) (Auto) 6.3 % Basophils (%) (Auto) 0.7 % Neutrophils # (Auto) 2.2 TH/MM3 Lymphocytes # (Auto) 2.2 TH/MM3 Monocytes # (Auto) 0.6 TH/MM3 Eosinophils # (Auto) 0.3 TH/MM3 Basophils # (Auto) 0.0 TH/MM3 CBC Comment DIFF FINAL Differential Comment Blood Urea Nitrogen 8 MG/DL Creatinine 0.92 MG/DL Random Glucose 89 MG/DL Total Protein 7.2 GM/DL Albumin 3.7 GM/DL Calcium Level 8.5 MG/DL Alkaline Phosphatase 115 U/L Aspartate Amino Transf (AST/SGOT) 30 U/L Alanine Aminotransferase (ALT/SGPT) 25 U/L Total Bilirubin 0.4 MG/DL Sodium Level 140 MEQ/L Potassium Level 3.5 MEQ/L Chloride Level 103 MEQ/L Carbon Dioxide Level 29.4 MEQ/L Anion Gap 8 MEQ/L Estimat Glomerular Filtration Rate 84 ML/MIN Urine Opiates Screen NEG Urine Barbiturates Screen NEG Urine Amphetamines Screen NEG Urine Benzodiazepines Screen NEG Urine Cocaine Screen NEG Urine Cannabinoids Screen NEG Ethyl Alcohol Level 258 MG/DL MDM Medical Decision Making Medical Screen Exam Complete: Yes Emergency Medical Condition: Yes Medical Record Reviewed: Yes Interpretation(s) Laboratory Tests Test 2/27/18 00:30 White Blood Count 5.4 TH/MM3 Red Blood Count 4.74 MIL/MM3 Hemoglobin 17.3 GM/DL Hematocrit 48.0 % Mean Corpuscular Volume 101.4 FL Mean Corpuscular Hemoglobin 36.4 PG Mean Corpuscular Hemoglobin Concent 35.9 % Red Cell Distribution Width 16.4 % Platelet Count 225 TH/MM3 Mean Platelet Volume 7.1 FL Neutrophils (%) (Auto) 40.9 % Lymphocytes (%) (Auto) 41.4 % Monocytes (%) (Auto) 10.7 % Eosinophils (%) (Auto) 6.3 % Basophils (%) (Auto) 0.7 % Neutrophils # (Auto) 2.2 TH/MM3 Lymphocytes # (Auto) 2.2 TH/MM3 Monocytes # (Auto) 0.6 TH/MM3 Eosinophils # (Auto) 0.3 TH/MM3 Basophils # (Auto) 0.0 TH/MM3 CBC Comment DIFF FINAL Differential Comment Blood Urea Nitrogen 8 MG/DL Creatinine 0.92 MG/DL Random Glucose 89 MG/DL Total Protein 7.2 GM/DL Albumin 3.7 GM/DL Calcium Level 8.5 MG/DL Alkaline Phosphatase 115 U/L Aspartate Amino Transf (AST/SGOT) 30 U/L Alanine Aminotransferase (ALT/SGPT) 25 U/L Total Bilirubin 0.4 MG/DL Sodium Level 140 MEQ/L Potassium Level 3.5 MEQ/L Chloride Level 103 MEQ/L Carbon Dioxide Level 29.4 MEQ/L Anion Gap 8 MEQ/L Estimat Glomerular Filtration Rate 84 ML/MIN Urine Opiates Screen NEG Urine Barbiturates Screen NEG Urine Amphetamines Screen NEG Urine Benzodiazepines Screen NEG Urine Cocaine Screen NEG Urine Cannabinoids Screen NEG Ethyl Alcohol Level 258 MG/DL Vital Signs Date Time Temp Pulse Resp B/P (MAP) Pulse Ox O2 Delivery O2 Flow Rate FiO2 05/02/17 23:50 98.7 92 20 137/73 (94) 99 Differential Diagnosis Mood disorder versus substance abuse versus suicidal ideations versus intoxication versus other Narrative Course Patient is a 61-year-old male presenting to the emergency department for psychiatric evaluation under Melo act. Medical records reviewed. Patient's vital signs are stable. Mental health screening discussed with the patient. Psychiatric screen ordered. Labs reviewed, no acute findings identified. Patient's alcohol level is 258. He is medically clear for psychiatric evaluation. Diagnosis Primary Impression: Medical clearance for psychiatric admission Additional Impression: Alcohol intoxication Qualified Codes: F10.920 - Alcohol use, unspecified with intoxication, uncomplicated Condition: Stable Tracie Silvestre May 03, 2017 00:26
[2017-05-03 01:05] LABS: AUTOMATED NEUTROPHIL # 2.2 TH/MM3 (1.8-7.7); BASOPHIL % 0.7 % (0.0-2.0); EOSINOPHIL # 0.3 TH/MM3 (0-0.4); EOSINOPHIL % 6.3 % (0.0-4.0); HEMOGLOBIN 17.3 GM/DL (13.0-17.0); LYMPH % 41.4 % (9.0-44.0); LYMPHOCYTE # 2.2 TH/MM3 (1.0-4.8); MEAN CELL VOLUME 101.4 FL (80.0-100.0); MEAN CORPUSCULAR HEMOGLOBIN 36.4 PG (27.0-34.0); MEAN CORPUSCULAR HGB CONC 35.9 % (32.0-36.0); MEAN PLATELET VOLUME 7.1 FL (7.0-11.0); MONO % 10.7 % (0.0-8.0); MONOCYTE # 0.6 TH/MM3 (0-0.9); NEUT % 40.9 % (16.0-70.0); PLATELET COUNT 225 TH/MM3 (150-450); RED BLOOD COUNT 4.74 MIL/MM3 (4.50-5.90); RED CELL DISTRIBUTION WIDTH 16.4 % (11.6-17.2); WHITE BLOOD COUNT 5.4 TH/MM3 (4.0-11.0)
[2017-05-03 01:30] LABS: ALKALINE PHOSPHATASE 115 U/L (45-117); TOTAL BILIRUBIN ADULT 0.4 MG/DL (0.2-1.0); TOTAL PROTEIN 7.2 GM/DL (6.4-8.2)
[2017-05-03 01:47] LABS: ALBUMIN 3.7 GM/DL (3.4-5.0); ALT (GPT) 25 U/L (12-78); AST (GOT) 30 U/L (15-37); BICARBONATE 29.4 MEQ/L (21.0-32.0); BLOOD UREA NITROGEN 8 MG/DL (7-18); CALCIUM 8.5 MG/DL (8.5-10.1); CHLORIDE 103 MEQ/L (98-107); CREATININE 0.92 MG/DL (0.60-1.30); GLOMERULAR FILTRATION RATE 84 ML/MIN (>89); GLUCOSE,RANDOM 89 MG/DL (74-106); SODIUM (NA) 140 MEQ/L (136-145)
[2017-05-03 08:22] VITALS: BP 102/60; PULSE 88; RESP 20; O2SAT 98
--- NOTE | 2017-05-03 11:45 | PD ---
Data Data Last Documented VS Vital Signs Date Time Temp Pulse Resp B/P (MAP) Pulse Ox O2 Delivery O2 Flow Rate FiO2 05/03/17 08:22 88 20 102/60 (74) 98 Room Air 05/02/17 23:50 98.7 Orders Orders Complete Blood Count With Diff (05/03/17 00:12) Comprehensive Metabolic Panel (05/03/17 00:12) Psych Screen (05/03/17 00:12) Drug Screen, Random Urine (05/03/17 00:12) Alcohol (Ethanol) (05/03/17 00:12) Diet Regular Basic (05/03/17 Breakfast) Labs Laboratory Tests Test 05/03/17 00:30 White Blood Count 5.4 TH/MM3 Red Blood Count 4.74 MIL/MM3 Hemoglobin 17.3 GM/DL Hematocrit 48.0 % Mean Corpuscular Volume 101.4 FL Mean Corpuscular Hemoglobin 36.4 PG Mean Corpuscular Hemoglobin Concent 35.9 % Red Cell Distribution Width 16.4 % Platelet Count 225 TH/MM3 Mean Platelet Volume 7.1 FL Neutrophils (%) (Auto) 40.9 % Lymphocytes (%) (Auto) 41.4 % Monocytes (%) (Auto) 10.7 % Eosinophils (%) (Auto) 6.3 % Basophils (%) (Auto) 0.7 % Neutrophils # (Auto) 2.2 TH/MM3 Lymphocytes # (Auto) 2.2 TH/MM3 Monocytes # (Auto) 0.6 TH/MM3 Eosinophils # (Auto) 0.3 TH/MM3 Basophils # (Auto) 0.0 TH/MM3 CBC Comment DIFF FINAL Differential Comment Blood Urea Nitrogen 8 MG/DL Creatinine 0.92 MG/DL Random Glucose 89 MG/DL Total Protein 7.2 GM/DL Albumin 3.7 GM/DL Calcium Level 8.5 MG/DL Alkaline Phosphatase 115 U/L Aspartate Amino Transf (AST/SGOT) 30 U/L Alanine Aminotransferase (ALT/SGPT) 25 U/L Total Bilirubin 0.4 MG/DL Sodium Level 140 MEQ/L Potassium Level 3.5 MEQ/L Chloride Level 103 MEQ/L Carbon Dioxide Level 29.4 MEQ/L Anion Gap 8 MEQ/L Estimat Glomerular Filtration Rate 84 ML/MIN Urine Opiates Screen NEG Urine Barbiturates Screen NEG Urine Amphetamines Screen NEG Urine Benzodiazepines Screen NEG Urine Cocaine Screen NEG Urine Cannabinoids Screen NEG Ethyl Alcohol Level 258 MG/DL [facility] Medical Record Reviewed: Yes Supervised Visit with VIOLETTE: No Narrative Course This case was managing conjunction with our psych screening services TOD Macias. Lorie Act lifted by the undersigned. Please refer to psych screening documentation. Diagnosis Primary Impression: Medical clearance for psychiatric admission Additional Impression: Alcohol intoxication Qualified Codes: F10.920 - Alcohol use, unspecified with intoxication, uncomplicated Med/Other Pt SpecificInfo: Med Stopped Disposition: DISCHARGE HOME Condition: Stable Alonzo Hager MD May 03, 2017 11:45
== END 2017-05-03 12:39 | disposition home or self-care (01) ==
LOC: NEPD 23:15
DX: F10.129 Alcohol abuse with intoxication, unspecified (principal); F17.200 Nicotine dependence, unspecified, uncomplicated; J44.9 Chronic obstructive pulmonary disease, unspecified; Y90.8 Blood alcohol level of 240 mg/100 ml or more; Z79.899 Other long term (current) drug therapy
CPT/HCPCS: 80053; 80307; 85025; 99284

== ENCOUNTER 2017-05-12 22:58 | Emergency (ER) | payer SELFPAY ==
[2017-05-13 00:24] VITALS: BP 133/69; PULSE 99; RESP 16; TEMP 98.8; O2SAT 98
--- NOTE | 2017-05-13 04:25 | PD ---
HPI Chief Complaint: Fall Time Seen by Provider: 04:21 Travel History International Travel<30 days: No Contact w/Intl Traveler<30days: No Traveled to known affect area: No History of Present Illness HPI 61-year-old male presents for evaluation of left leg pain. The patient reports that he is wheelchair dependent. This evening when of the leg rests of his wheelchair broke off and caused his wheelchair to fall. He landed on his left leg. He is complaining of left hip, left knee and left foot pain. Pain is an aching pain which is constant, worse when falling. He reports that he has had a wound on the dorsum of his left foot for 1 month which started spontaneously. This has been aggravated from the fall as well. He reports a history of diabetes. He has no other complaints at this time. PFSH Past Medical History Cardiovascular Problems: Yes COPD: Yes Cerebrovascular Accident: Yes Diabetes: Yes Patient Takes Glucophage: No Diminished Hearing: No Deep Vein Thrombosis: Yes (BILATERAL UPPER EXTREMITIES) GERD: Yes Hiatal Hernia: Yes Respiratory: Yes (COPD) Immunizations Current: No Migraines: Yes Myocardial Infarction: Yes Pancreatitis: Yes Seizures: Yes Past Surgical History Abdominal Surgery: Yes (HIATAL HERNIA REPAIR) Social History Alcohol Use: Yes (1-2 beers per day) Tobacco Use: Yes (1/2 PPD) Substance Use: No Allergies-Medications (Allergen,Severity, Reaction): Coded Allergies: acetaminophen (Unverified Allergy, Severe, 04/30/17) ampicillin (Unverified Allergy, Severe, 04/30/17) aspirin (Unverified Allergy, Severe, 04/30/17) butorphanol (Unverified Allergy, Severe, 04/30/17) chlordiazepoxide (Unverified Allergy, Severe, 04/30/17) codeine (Unverified Allergy, Severe, 04/30/17) diazepam (Unverified Allergy, Severe, 04/30/17) divalproex sodium (Unverified Allergy, Severe, 04/30/17) droperidol (Unverified Allergy, Severe, 04/30/17) hydrocodone (Unverified Allergy, Severe, 04/30/17) hydromorphone (Unverified Allergy, Severe, 04/30/17) hydroxyzine (Unverified Allergy, Severe, 04/30/17) ketorolac (Unverified Allergy, Severe, 04/30/17) lidocaine (Unverified Allergy, Severe, 04/30/17) lorazepam (Unverified Allergy, Severe, 04/30/17) methylprednisolone (Unverified Allergy, Severe, 04/30/17) metoclopramide (Unverified Allergy, Severe, 04/30/17) nalbuphine (Unverified Allergy, Severe, 04/30/17) ondansetron (Unverified Allergy, Severe, 04/30/17) oxycodone (Unverified Allergy, Severe, 04/30/17) penicillin G (Unverified Allergy, Severe, 04/30/17) procaine (Unverified Allergy, Severe, 04/30/17) prochlorperazine (Unverified Allergy, Severe, 04/30/17) propranolol (Unverified Allergy, Severe, 04/30/17) sumatriptan (Unverified Allergy, Severe, 04/30/17) tramadol (Unverified Allergy, Severe, 04/30/17) zolmitriptan (Unverified Allergy, Severe, 04/30/17) Reported Meds & Prescriptions Reported Meds & Active Scripts Active Clindamycin (Clindamycin HCl) 300 Mg Cap 300 Mg PO TID 10 Days Gabapentin 100 Mg Cap 100 Mg PO TID Reported Ventolin Hfa 18 GM Inh (Albuterol Sulfate) 90 Mcg/Act Aer 2 Puff INH Q4-6H PRN Dilantin (Phenytoin Extended) 30 Mg Cap 30 Mg PO TID Review of Systems Except as stated in HPI: all other systems reviewed are Neg Physical Exam Narrative GENERAL: Disheveled male in no acute distress SKIN: Warm and dry. There is a superficial ulceration on the dorsum of the left foot. There is some surrounding erythema. This is tender to palpation. HEAD: Atraumatic. Normocephalic. EYES: Pupils equal and round. No scleral icterus. No injection or drainage. ENT: No nasal bleeding or discharge. Mucous membranes pink and moist. NECK: Trachea midline. No JVD. CARDIOVASCULAR: Regular rate and rhythm. No murmur appreciated. RESPIRATORY: No accessory muscle use. Clear to auscultation. Breath sounds equal bilaterally. GASTROINTESTINAL: Abdomen soft, non-tender, nondistended. Hepatic and splenic margins not palpable. MUSCULOSKELETAL: Skin as noted above with associated tenderness to palpation the left foot. There is mild tenderness to palpation of the lateral left knee and left hip as well. The patient maintains full range of motion of the lower extremities. No tenderness to palpation along the neck or back. NEUROLOGICAL: Awake and alert. No obvious cranial nerve deficits. Motor grossly within normal limits. Normal speech. PSYCHIATRIC: Appropriate mood and affect; insight and judgment normal. Data Data Last Documented VS Vital Signs Date Time Temp Pulse Resp B/P (MAP) Pulse Ox O2 Delivery O2 Flow Rate FiO2 05/13/17 00:24 98.8 99 16 133/69 (90) 98 Orders Orders Foot, Complete (Ehu0bst) (05/13/17 ) Hip, Uni(Ap&Lat) Wo Ap Pelvis (05/13/17 ) Knee, Complete (4vws) (05/13/17 ) Clindamycin (Cleocin) (05/13/17 05:45) Wound Care (05/13/17 05:32) Ed Discharge Order (05/13/17 05:32) MDM Medical Decision Making Medical Screen Exam Complete: Yes Emergency Medical Condition: Yes Medical Record Reviewed: Yes Differential Diagnosis Contusion, fracture, sprain, strain Narrative Course X-ray imaging of the left knee, hip, foot obtained. X-ray imaging reveals no acute abnormalities. I am concerned about the patient' s dorsal left foot ulceration in the setting of history of diabetes. He does have mild surrounding cellulitis. He has numerous medication allergies. He will be started on clindamycin and referred for outpatient follow-up with professor of radiology Dr. Scott. Local wound care provided. Diagnosis Primary Impression: Foot ulcer, left Additional Impression: Cellulitis of left foot Referrals: Tyrone Scott DPM Additional Instructions: Wash the wounds twice a day with soap and water and apply antibiotic cream and clean bandages. Medication as prescribed. Follow-up with Dr. Scott in the next week. Return for any emergent medical conditions. Med/Other Pt SpecificInfo: Prescription(s) given, Wound Care Scripts Clindamycin (Clindamycin) 300 Mg Cap 300 MG PO TID for Infection for 10 Days, CAP 0 Refills Prov: Ash Newton MD 05/13/17 Disposition: 01 DISCHARGE HOME Condition: Stable Vance Portillo. PA May 13, 2017 04:25
--- NOTE | 2017-05-13 05:24 | RADRPT ---
EXAM DATE/TIME: 05/13/2017 04:56 [facility] COMPARISON: No previous studies available for comparison. INDICATIONS : Hip pain. MEDICAL HISTORY : Myocardial infarction. Deep venous thrombosis. Parkinson's. CVA x5. Seizures. Migraines. COPD. Hiatal hernia. Diabetes. GERD. Tobacco use. Anticoagulant therapy, Lovenox SURGICAL HISTORY : ENCOUNTER: Initial ACUITY: 2 days PAIN SCORE: 10/10 LOCATION: Left hip. FINDINGS: A two view examination of the left hip was performed. The primary and secondary trabecular pattern o f the femoral neck is intact. The hip joint is of normal width without significant sclerosis or bony hypertrophy. The acetabulum is grossly intact. CONCLUSION: Normal radiographic appearance of the left hip. Smith Finley MD on May 13, 2017 at 5:21 Board Certified Radiologist. This report was verified electronically.
--- NOTE | 2017-05-13 05:25 | RADRPT ---
EXAM DATE/TIME: 05/13/2017 04:59 [facility] COMPARISON: No previous studies available for comparison. INDICATIONS : Knee pain. MEDICAL HISTORY : Myocardial infarction. Deep venous thrombosis. Parkinson's. CVA x5. Seizures. Migraines. COPD. Hiatal hernia. Diabetes. GERD. Tobacco use. Anticoagulant therapy, Lovenox SURGICAL HISTORY : Hiatal hernia repair. ENCOUNTER: Initial ACUITY: 2 days PAIN SCORE: 10/10 LOCATION: Left knee FINDINGS: Four view examination of the left knee demonstrates no evidence of fracture or dislocation. Bony min eralization is normal. The articular surfaces are intact. The suprapatellar soft tissues have a nor mal configuration. CONCLUSION: Normal left knee radiographs. Smith Finley MD on May 13, 2017 at 5:23 Board Certified Radiologist. This report was verified electronically.
--- NOTE | 2017-05-13 05:25 | RADRPT ---
EXAM DATE/TIME: 05/13/2017 05:01 [facility] COMPARISON: No previous studies available for comparison. INDICATIONS : Foot pain. MEDICAL HISTORY : Myocardial infarction. Deep venous thrombosis. Parkinson's. CVA x5. Seizures. Migraines. COPD. Hiatal hernia. Diabetes. GERD. Tobacco use. Anticoagulant therapy, Lovenox. SURGICAL HISTORY : Hiatal hernia repair. ENCOUNTER: Initial ACUITY: 2 days PAIN SCORE: 10/10 LOCATION: Left foot. FINDINGS: Three view examination of the left foot demonstrates no soft tissue swelling, dislocation, or fractur e. The tarsal bones appear intact. The interphalangeal and metatarsophalangeal joints are intact. The calcaneus is intact. Bony mineralization is normal. CONCLUSION: Intact left foot. Smith Finley MD on May 13, 2017 at 5:24 Board Certified Radiologist. This report was verified electronically.
[2017-05-13] MEDS ORDERED: CLIN300C5 PO (05:37)
[2017-05-13] MEDS ORDERED: CLINDAMYCIN 150 MG CAP PO ONE (05:45)
== END 2017-05-13 06:21 | disposition home or self-care (01) ==
LOC: NEPD 22:58
DX: L97.529 Non-pressure chronic ulcer of other part of left foot with unspecified severity (principal); L03.116 Cellulitis of left lower limb; M25.552 Pain in left hip; M25.562 Pain in left knee; W05.0XXA Fall from non-moving wheelchair, initial encounter; E11.9 Type 2 diabetes mellitus without complications; F17.200 Nicotine dependence, unspecified, uncomplicated; Z86.718 Personal history of other venous thrombosis and embolism; Z86.73 Personal history of transient ischemic attack (TIA), and cerebral infarction without residual deficits
CPT/HCPCS: 73502; 73564; 73630; 99283

== ENCOUNTER 2017-05-17 22:11 | Emergency (ER) | payer SELFPAY ==
[~2017-05-17 22:11] MED LIST changes: +CLIN300C5 PO
[2017-05-17 22:25] VITALS: BP 112/68; PULSE 98; RESP 16; TEMP 98; O2SAT 96
== END 2017-05-17 23:49 | disposition left against medical advice (07) ==
LOC: NED 22:11
DX: Z03.89 Encounter for observation for other suspected diseases and conditions ruled out (principal)
CPT/HCPCS: 99281

== ENCOUNTER 2017-06-01 23:14 | Emergency (ER) | payer SELFPAY ==
[~2017-06-01] VITALS: Ht 182.9 cm; Wt 70.0 kg
[2017-06-02 00:57] VITALS: BP 136/77; PULSE 103; RESP 16; TEMP 98.8; O2SAT 99
--- NOTE | 2017-06-02 07:07 | PD ---
HPI Chief Complaint: Cold / Flu Symptoms Time Seen by Provider: 04:34 Travel History International Travel<30 days: No Contact w/Intl Traveler<30days: No Traveled to known affect area: No History of Present Illness HPI Patient reports that he feels feverish and chills and thinks he may have a cold patient comes to the ER often lead wanting to sleep. Patient is homeless patient often comes in with his stuffed animal just wants to sleep and then leaves in the morning. Patient when I offer him Tylenol or Motrin for his chills he refuses and said I just need to sleep patient is allowed to sleep in the discharge in the morning there is no signs of trauma to his head there is no vomiting no diarrhea patient is frequent flyer known to this ER and appears to be his normal baseline self without any head trauma or need for further eval or workup PFSH Past Medical History Cardiovascular Problems: Yes COPD: Yes Cerebrovascular Accident: Yes Diabetes: Yes Patient Takes Glucophage: No Diminished Hearing: No Deep Vein Thrombosis: Yes (BILATERAL UPPER EXTREMITIES) GERD: Yes Hiatal Hernia: Yes Respiratory: Yes (COPD) Immunizations Current: No Migraines: Yes Myocardial Infarction: Yes Pancreatitis: Yes Seizures: Yes Tetanus Vaccination: < 5 Years Influenza Vaccination: No Past Surgical History Abdominal Surgery: Yes (HIATAL HERNIA REPAIR) Social History Alcohol Use: Yes (1-2 beers per day) Tobacco Use: Yes (1/2 PPD) Substance Use: No Allergies-Medications (Allergen,Severity, Reaction): Coded Allergies: acetaminophen (Verified Allergy, Severe, 06/02/17) ampicillin (Verified Allergy, Severe, 06/02/17) aspirin (Verified Allergy, Severe, 06/02/17) butorphanol (Verified Allergy, Severe, 06/02/17) chlordiazepoxide (Verified Allergy, Severe, 06/02/17) codeine (Verified Allergy, Severe, 06/02/17) diazepam (Verified Allergy, Severe, 06/02/17) divalproex sodium (Verified Allergy, Severe, 06/02/17) droperidol (Verified Allergy, Severe, 06/02/17) hydrocodone (Verified Allergy, Severe, 06/02/17) hydromorphone (Verified Allergy, Severe, 06/02/17) hydroxyzine (Verified Allergy, Severe, 06/02/17) ketorolac (Verified Allergy, Severe, 06/02/17) lidocaine (Verified Allergy, Severe, 06/02/17) lorazepam (Verified Allergy, Severe, 06/02/17) methylprednisolone (Verified Allergy, Severe, 06/02/17) metoclopramide (Verified Allergy, Severe, 06/02/17) nalbuphine (Verified Allergy, Severe, 06/02/17) ondansetron (Verified Allergy, Severe, 06/02/17) oxycodone (Verified Allergy, Severe, 06/02/17) penicillin G (Verified Allergy, Severe, 06/02/17) procaine (Verified Allergy, Severe, 06/02/17) prochlorperazine (Verified Allergy, Severe, 06/02/17) propranolol (Verified Allergy, Severe, 06/02/17) sumatriptan (Verified Allergy, Severe, 06/02/17) tramadol (Verified Allergy, Severe, 06/02/17) zolmitriptan (Verified Allergy, Severe, 06/02/17) Reported Meds & Prescriptions Reported Meds & Active Scripts Active Clindamycin (Clindamycin HCl) 300 Mg Cap 300 Mg PO TID 10 Days Gabapentin 100 Mg Cap 100 Mg PO TID Reported Ventolin Hfa 18 GM Inh (Albuterol Sulfate) 90 Mcg/Act Aer 2 Puff INH Q4-6H PRN Dilantin (Phenytoin Extended) 30 Mg Cap 30 Mg PO TID Physical Exam Narrative GENERAL: sunburned skin of exposure and homelessness . disheveled smells of urine clothes has a stuffed bunny with him SKIN: Warm and dry.suntanned burn exposure appearance HEAD: Atraumatic. Normocephalic. EYES: Pupils equal and round. ENT: no bleeding from nose. NECK: Trachea midline. No JVD. CARDIOVASCULAR: Regular rate and rhythm. RESPIRATORY: No accessory muscle use. Clear to auscultation. Breath sounds equal bilaterally. GASTROINTESTINAL: Abdomen soft, non-tender MUSCULOSKELETAL: Extremities without clubbing, cyanosis, or edema. No obvious deformities. NEUROLOGICAL: Awake and alert. No obvious cranial nerve deficits. Motor grossly within normal limits. Five out of 5 muscle strength in the arms and legs. Normal speech. PSYCHIATRIC: AOX3 Data Data Last Documented VS Vital Signs Date Time Temp Pulse Resp B/P (MAP) Pulse Ox O2 Delivery O2 Flow Rate FiO2 06/02/17 00:57 98.8 103 16 136/77 (96) 99 Orders Orders Ed Discharge Order (06/02/17 07:26) MDM Medical Decision Making Medical Screen Exam Complete: Yes Emergency Medical Condition: Yes Differential Diagnosis edema peripheral chronic and homelessness needing place to sleep Narrative Course pt offered motrin tylenol for headaceh He refuses saying " just need to rest I'll be fine " pt sleeps few hours all his belonging with him and in AM is discharged ambulates without difficulty , no head injury noted Diagnosis Primary Impression: Chills Patient Instructions: General Instructions, Weakness (ED) Disposition: 01 DISCHARGE HOME Condition: Good Ash Newton MD Jun 02, 2017 07:07
== END 2017-06-02 08:05 | disposition home or self-care (01) ==
LOC: NEPE 23:14
DX: R68.83 Chills (without fever) (principal); F17.200 Nicotine dependence, unspecified, uncomplicated; J44.9 Chronic obstructive pulmonary disease, unspecified
CPT/HCPCS: 99282

== ENCOUNTER 2017-06-10 20:58 | Observation (INO) | payer SELFPAY ==
[~2017-06-10] VITALS: Ht 172.7 cm; Wt 70.0 kg
[2017-06-10 21:46] VITALS: BP 114/76; PULSE 94; RESP 20; TEMP 97.5; O2SAT 96
--- NOTE | 2017-06-10 23:06 | PD ---
HPI Chief Complaint: Chest Pain Time Seen by Provider: 23:05 Travel History International Travel<30 days: No Contact w/Intl Traveler<30days: No Traveled to known affect area: No History of Present Illness HPI 61-year-old male came to the emergency room with history of chest pain as per the triage complaint. Patient on the other hand prefers to just sleep and does not want to be woken up. Upon persistence he would answer that he is here for chest pain but does not want to elaborate on it. Patient seems to be homeless and he is here with his wheelchair that was brought in by EMS. Vital signs are stable. History is limited because of patient's current demeanor. [facility] Past Medical History Narrative Medical List of his past medical, surgical, social and family history is reviewed from the nursing note. Cardiovascular Problems: Yes COPD: Yes Cerebrovascular Accident: Yes Diabetes: Yes Patient Takes Glucophage: Yes Diminished Hearing: No Deep Vein Thrombosis: Yes (BILATERAL UPPER EXTREMITIES) GERD: Yes Hiatal Hernia: Yes Respiratory: Yes (COPD) Immunizations Current: No Migraines: Yes Myocardial Infarction: Yes Pancreatitis: Yes Seizures: Yes Tetanus Vaccination: Unknown Influenza Vaccination: No Past Surgical History Abdominal Surgery: Yes (HIATAL HERNIA REPAIR) Social History Alcohol Use: Yes (1-2 beers per day) Tobacco Use: Yes (1/2 PPD) Substance Use: No Allergies-Medications (Allergen,Severity, Reaction): Coded Allergies: acetaminophen (Verified Allergy, Severe, 06/02/17) ampicillin (Verified Allergy, Severe, 06/02/17) aspirin (Verified Allergy, Severe, 06/02/17) butorphanol (Verified Allergy, Severe, 06/02/17) chlordiazepoxide (Verified Allergy, Severe, 06/02/17) codeine (Verified Allergy, Severe, 06/02/17) diazepam (Verified Allergy, Severe, 06/02/17) divalproex sodium (Verified Allergy, Severe, 06/02/17) droperidol (Verified Allergy, Severe, 06/02/17) hydrocodone (Verified Allergy, Severe, 06/02/17) hydromorphone (Verified Allergy, Severe, 06/02/17) hydroxyzine (Verified Allergy, Severe, 06/02/17) ketorolac (Verified Allergy, Severe, 06/02/17) lidocaine (Verified Allergy, Severe, 06/02/17) lorazepam (Verified Allergy, Severe, 06/02/17) methylprednisolone (Verified Allergy, Severe, 06/02/17) metoclopramide (Verified Allergy, Severe, 06/02/17) nalbuphine (Verified Allergy, Severe, 06/02/17) ondansetron (Verified Allergy, Severe, 06/02/17) oxycodone (Verified Allergy, Severe, 06/02/17) penicillin G (Verified Allergy, Severe, 06/02/17) procaine (Verified Allergy, Severe, 06/02/17) prochlorperazine (Verified Allergy, Severe, 06/02/17) propranolol (Verified Allergy, Severe, 06/02/17) sumatriptan (Verified Allergy, Severe, 06/02/17) tramadol (Verified Allergy, Severe, 06/02/17) zolmitriptan (Verified Allergy, Severe, 06/02/17) Comments Extensive list of his allergies have been reviewed from the nursing note. Reported Meds & Prescriptions Reported Meds & Active Scripts Active Clindamycin (Clindamycin HCl) 300 Mg Cap 300 Mg PO TID 10 Days Gabapentin 100 Mg Cap 100 Mg PO TID Reported Ventolin Hfa 18 GM Inh (Albuterol Sulfate) 90 Mcg/Act Aer 2 Puff INH Q4-6H PRN Dilantin (Phenytoin Extended) 30 Mg Cap 30 Mg PO TID Narrative Medication List of his home medications reviewed from the nursing note. Review of Systems ROS Limitations: Uncooperative Except as stated in HPI: all other systems reviewed are Neg Cardiovascular: Positive: Chest Pain or Discomfort Physical Exam Exam Limitations: Uncooperative Narrative GENERAL: Sleeping, wakes up and becomes agitated although answers questions. No obvious distress SKIN: Focused skin assessment warm/dry. HEAD: Atraumatic. Normocephalic. EYES: Pupils equal and round. No scleral icterus. No injection or drainage. ENT: No nasal bleeding or discharge. Mucous membranes pink and moist. NECK: Trachea midline. No JVD. CARDIOVASCULAR: Regular rate and rhythm. No murmur appreciated. RESPIRATORY: No accessory muscle use. Clear to auscultation. Breath sounds equal bilaterally. GASTROINTESTINAL: Abdomen soft, non-tender, nondistended. Hepatic and splenic margins not palpable. MUSCULOSKELETAL: No obvious deformities. No clubbing. No cyanosis. No edema. NEUROLOGICAL: Awake and alert. No obvious cranial nerve deficits. Motor grossly within normal limits. Normal speech. PSYCHIATRIC: Appropriate mood and affect; insight and judgment normal. Data Data Last Documented VS Vital Signs Date Time Temp Pulse Resp B/P (MAP) Pulse Ox O2 Delivery O2 Flow Rate FiO2 06/11/17 00:55 86 18 108/58 (75) 97 Room Air 06/10/17 21:46 97.5 Orders Orders Albuterol-Ipratropium Neb (Duoneb Neb) (06/10/17 23:15) Sodium Chloride 0.9% Flush (Ns Flush) (06/10/17 23:15) Ibuprofen (Motrin) (06/10/17 23:15) Electrocardiogram (06/10/17 23:35) Basic Metabolic Panel (Bmp) (06/10/17 23:35) Complete Blood Count With Diff (06/10/17 23:35) Magnesium (Mg) (06/10/17 23:35) Prothrombin Time / Inr (Pt) (06/10/17 23:35) Troponin I (06/10/17 23:35) Chest, Single Ap (06/10/17 23:35) Ecg Monitoring (06/10/17 23:35) Bilateral Bp Monitoring (06/10/17 23:35) Iv Access Insert/Monitor (06/10/17 23:35) Oximetry (06/10/17 23:35) Oxygen Administration (06/10/17 23:35) Sodium Chloride 0.9% Flush (Ns Flush) (06/10/17 23:45) Phenytoin (Dilantin) (06/11/17 01:25) Admit Order (Ed Use Only) (06/11/17 05:00) Activity Bed Rest With Brp (06/11/17 05:00) Vital Signs (Adult) Q4H (06/11/17 05:00) Cardiac Rhythm .As Directed (06/11/17 05:00) Notify Dr: Other .PRN (06/11/17 05:00) Notify Parameters (06/11/17 05:00) Resp Oxygen Nasal Cannula (06/11/17 ) Ckmb (Isoenzyme) Profile (06/11/17 05:00) Ckmb (Isoenzyme) Profile (06/11/17 08:00) Troponin I (06/11/17 05:00) Troponin I (06/11/17 08:00) Electrocardiogram (06/11/17 05:00) ^ Obtain (06/11/17 05:00) D5-1/2 Ns + Kcl 20 Meq Inj (D5-1/2 Ns + (06/11/17 05:00) Sodium Chloride 0.9% Flush (Ns Flush) (06/11/17 09:00) Pantoprazole (Protonix) (06/11/17 09:00) Nitroglycerin Sl (Nitrostat Sl) (06/11/17 05:00) Channel Account Manager / Telemetry DILLON.Q8H (06/11/17 05:00) Vital Signs (Adult) Q4H (06/11/17 05:00) Bedside Glucose DILLON.CSUGAR (06/11/17 05:00) Intake + Output DILLON.QSHIFT (06/11/17 05:00) Alcohol Withdrawal Asmt-Ciwa Q4HX18 (06/11/17 05:00) ^ Seizure Precautions (06/11/17 05:00) CKMB (06/11/17 06:35) CKMB% (06/11/17 06:35) CKMB (06/11/17 09:07) CKMB% (06/11/17 09:07) Labs Laboratory Tests Test 06/11/17 01:25 White Blood Count 3.7 TH/MM3 Red Blood Count 4.58 MIL/MM3 Hemoglobin 16.1 GM/DL Hematocrit 46.3 % Mean Corpuscular Volume 101.2 FL Mean Corpuscular Hemoglobin 35.3 PG Mean Corpuscular Hemoglobin Concent 34.9 % Red Cell Distribution Width 15.5 % Platelet Count 247 TH/MM3 Mean Platelet Volume 6.9 FL CBC Comment AUTO DIFF Differential Total Cells Counted 100 Neutrophils % (Manual) 29 % Lymphocytes % 49 % Monocytes % 15 % Eosinophils % 6 % Basophils % 1 % Neutrophils # (Manual) 1.1 TH/MM3 Differential Comment FINAL DIFF MANUAL Platelet Estimate NORMAL Platelet Morphology Comment NORMAL Red Cell Morphology Comment NORMAL Prothrombin Time 10.0 SEC Prothromb Time International Ratio 1.0 RATIO Blood Urea Nitrogen 8 MG/DL Creatinine 0.91 MG/DL Random Glucose 79 MG/DL Calcium Level 8.5 MG/DL Magnesium Level 2.0 MG/DL Sodium Level 143 MEQ/L Potassium Level 3.2 MEQ/L Chloride Level 106 MEQ/L Carbon Dioxide Level 29.4 MEQ/L Anion Gap 8 MEQ/L Estimat Glomerular Filtration Rate 85 ML/MIN Troponin I LESS THAN 0.02 NG/ML Phenytoin (Dilantin) Level LESS THAN 0.4 MCG/ML MDM Medical Decision Making Medical Screen Exam Complete: Yes Emergency Medical Condition: Yes Medical Record Reviewed: Yes Interpretation(s) Twelve-lead EKG was reviewed by me. Normal sinus rhythm, normal axis, nonspecific ST-T wave changes. Heart rate of 76 bpm. Differential Diagnosis ACS, malingering, nonspecific chest pain Narrative Course 12:01 AM awaiting for the blood test results. Procedures EKG Prior to Arrival: Jermaine Bailon MD Jun 10, 2017 23:06
[2017-06-10] MEDS ORDERED: RESP: ALBUTEROL 2.5 MG/IPRATROPIUM 0.5 MG NEB (SCH) INH (23:15)
[2017-06-10] MEDS ORDERED: SODIUM CHLORIDE 0.9% FLUSH 10 ML FLUSH IVF PRN ×2 (23:15→23:45)
[2017-06-10] MEDS ORDERED: IBUPROFEN 600 MG TAB PO ONE (23:15)
--- NOTE | 2017-06-11 00:30 | RADRPT ---
EXAM DATE/TIME: 06/10/2017 23:44 [facility] COMPARISON: No previous studies available for comparison. INDICATIONS : Chest pain. MEDICAL HISTORY : Myocardial infarction. Deep venous thrombosis. Parkinson's. CVA x5. Seizures. Migraines. COPD. Hiatal hernia. Diabetes. GERD. Tobacco use. Anticoagulant therapy, Lovenox. SURGICAL HISTORY : Hiatal hernia repair. ENCOUNTER: Initial ACUITY: 1 day PAIN SCORE: 2/10 LOCATION: Bilateral chest FINDINGS: 2 AP views of the chest. The lungs are clear. Cardiomediastinal silhouette within normal limits. No e vidence of pleural effusion or pneumothorax. Evidence of old proximal left humerus fracture. CONCLUSION: No acute cardiopulmonary disease identified. Trace Alvarez MD on June 11, 2017 at 0:28 Board Certified Radiologist. This report was verified electronically.
[2017-06-11 00:55] VITALS: BP 108/58; PULSE 86; RESP 18; O2SAT 97
[2017-06-11 01:40] LABS: HEMATOCRIT 46.3 % (39.0-51.0); HEMOGLOBIN 16.1 GM/DL (13.0-17.0); MEAN CELL VOLUME 101.2 FL (80.0-100.0); MEAN CORPUSCULAR HEMOGLOBIN 35.3 PG (27.0-34.0); MEAN CORPUSCULAR HGB CONC 34.9 % (32.0-36.0); MEAN PLATELET VOLUME 6.9 FL (7.0-11.0); PLATELET COUNT 247 TH/MM3 (150-450); RED BLOOD COUNT 4.58 MIL/MM3 (4.50-5.90); RED CELL DISTRIBUTION WIDTH 15.5 % (11.6-17.2); WHITE BLOOD COUNT 3.7 TH/MM3 (4.0-11.0)
[2017-06-11 02:45] LABS: BICARBONATE 29.4 MEQ/L (21.0-32.0); BLOOD UREA NITROGEN 8 MG/DL (7-18); CALCIUM 8.5 MG/DL (8.5-10.1); CHLORIDE 106 MEQ/L (98-107); CREATININE 0.91 MG/DL (0.60-1.30); GLOMERULAR FILTRATION RATE 85 ML/MIN (>89); GLUCOSE,RANDOM 79 MG/DL (74-106); SODIUM (NA) 143 MEQ/L (136-145)
[2017-06-11 02:50] LABS: PHENYTOIN (DILANTIN) LESS THAN 0.4 MCG/ML (10.0-20.0); TROPONIN I LESS THAN 0.02 NG/ML (0.02-0.05)
[2017-06-11 03:40] LABS: BASOPHILS 1 % (0-2); LYMPHOCYTES 49 % (9-44); MONOCYTES 15 % (0-8); NEUTROPHIL # MANUAL DIFF 1.1 TH/MM3 (1.8-7.7); POLYS (SEG NEUTROPHILS) 29 % (16-70)
[2017-06-11] MEDS ORDERED: D5-1/2 NS + KCL 20 MEQ INJ 1,000 ML IV SCH (05:00)
[2017-06-11] MEDS ORDERED: NITROGLYCERIN 0.4 MG SL 25 TABS/BTL SL PRN (05:00)
--- NOTE | 2017-06-11 05:10 | PD ---
Physical Exam Date Seen by Provider: Jun 11, 2017 Time Seen by Provider: 05:07 Narrative For full history and physical exam please see previous providers note. Data Data Last Documented VS Vital Signs Date Time Temp Pulse Resp B/P (MAP) Pulse Ox O2 Delivery O2 Flow Rate FiO2 06/11/17 00:55 86 18 108/58 (75) 97 Room Air 06/10/17 21:46 97.5 Orders Orders Albuterol-Ipratropium Neb (Duoneb Neb) (06/10/17 23:15) Sodium Chloride 0.9% Flush (Ns Flush) (06/10/17 23:15) Ibuprofen (Motrin) (06/10/17 23:15) Electrocardiogram (06/10/17 23:35) Basic Metabolic Panel (Bmp) (06/10/17 23:35) Complete Blood Count With Diff (06/10/17 23:35) Magnesium (Mg) (06/10/17 23:35) Prothrombin Time / Inr (Pt) (06/10/17 23:35) Troponin I (06/10/17 23:35) Chest, Single Ap (06/10/17 23:35) Ecg Monitoring (06/10/17 23:35) Bilateral Bp Monitoring (06/10/17 23:35) Iv Access Insert/Monitor (06/10/17 23:35) Oximetry (06/10/17 23:35) Oxygen Administration (06/10/17 23:35) Sodium Chloride 0.9% Flush (Ns Flush) (06/10/17 23:45) Phenytoin (Dilantin) (06/11/17 01:25) Admit Order (Ed Use Only) (06/11/17 05:00) Activity Bed Rest With Brp (06/11/17 05:00) Vital Signs (Adult) Q4H (06/11/17 05:00) Cardiac Rhythm .As Directed (06/11/17 05:00) Notify Dr: Other .PRN (06/11/17 05:00) Notify Parameters (06/11/17 05:00) Resp Oxygen Nasal Cannula (06/11/17 ) Diet Npo (06/11/17 Breakfast) Ckmb (Isoenzyme) Profile (06/11/17 05:00) Ckmb (Isoenzyme) Profile (06/11/17 08:00) Troponin I (06/11/17 05:00) Troponin I (06/11/17 08:00) Electrocardiogram (06/11/17 05:00) Electrocardiogram (06/11/17 08:00) ^ Obtain (06/11/17 05:00) D5-1/2 Ns + Kcl 20 Meq Inj (D5-1/2 Ns + (06/11/17 05:00) Sodium Chloride 0.9% Flush (Ns Flush) (06/11/17 09:00) Pantoprazole (Protonix) (06/11/17 09:00) Nitroglycerin Sl (Nitrostat Sl) (06/11/17 05:00) Sharepoint Web Developer / Telemetry DILLON.Q8H (06/11/17 05:00) Vital Signs (Adult) Q4H (06/11/17 05:00) Bedside Glucose DILLON.CSUGAR (06/11/17 05:00) Intake + Output DILLON.QSHIFT (06/11/17 05:00) Alcohol Withdrawal Asmt-Ciwa Q4HX18 (06/11/17 05:00) ^ Seizure Precautions (06/11/17 05:00) Labs Laboratory Tests Test 06/11/17 01:25 White Blood Count 3.7 TH/MM3 Red Blood Count 4.58 MIL/MM3 Hemoglobin 16.1 GM/DL Hematocrit 46.3 % Mean Corpuscular Volume 101.2 FL Mean Corpuscular Hemoglobin 35.3 PG Mean Corpuscular Hemoglobin Concent 34.9 % Red Cell Distribution Width 15.5 % Platelet Count 247 TH/MM3 Mean Platelet Volume 6.9 FL CBC Comment AUTO DIFF Differential Total Cells Counted 100 Neutrophils % (Manual) 29 % Lymphocytes % 49 % Monocytes % 15 % Eosinophils % 6 % Basophils % 1 % Neutrophils # (Manual) 1.1 TH/MM3 Differential Comment FINAL DIFF MANUAL Platelet Estimate NORMAL Platelet Morphology Comment NORMAL Red Cell Morphology Comment NORMAL Prothrombin Time 10.0 SEC Prothromb Time International Ratio 1.0 RATIO Blood Urea Nitrogen 8 MG/DL Creatinine 0.91 MG/DL Random Glucose 79 MG/DL Calcium Level 8.5 MG/DL Magnesium Level 2.0 MG/DL Sodium Level 143 MEQ/L Potassium Level 3.2 MEQ/L Chloride Level 106 MEQ/L Carbon Dioxide Level 29.4 MEQ/L Anion Gap 8 MEQ/L Estimat Glomerular Filtration Rate 85 ML/MIN Troponin I LESS THAN 0.02 NG/ML Phenytoin (Dilantin) Level LESS THAN 0.4 MCG/ML [facility] Medical Record Reviewed: Yes Supervised Visit with VIOLETTE: Yes Interpretation(s) Last Impressions Chest X-Ray 06/10/17 [id number] Signed Impressions: Service Date/Time: Saturday, June 10, 2017 23:44 - CONCLUSION: No acute cardiopulmonary disease identified. Trace Alvarez MD Laboratory Tests Test 06/11/17 01:25 White Blood Count 3.7 TH/MM3 Red Blood Count 4.58 MIL/MM3 Hemoglobin 16.1 GM/DL Hematocrit 46.3 % Mean Corpuscular Volume 101.2 FL Mean Corpuscular Hemoglobin 35.3 PG Mean Corpuscular Hemoglobin Concent 34.9 % Red Cell Distribution Width 15.5 % Platelet Count 247 TH/MM3 Mean Platelet Volume 6.9 FL CBC Comment AUTO DIFF Differential Total Cells Counted 100 Neutrophils % (Manual) 29 % Lymphocytes % 49 % Monocytes % 15 % Eosinophils % 6 % Basophils % 1 % Neutrophils # (Manual) 1.1 TH/MM3 Differential Comment FINAL DIFF MANUAL Platelet Estimate NORMAL Platelet Morphology Comment NORMAL Red Cell Morphology Comment NORMAL Prothrombin Time 10.0 SEC Prothromb Time International Ratio 1.0 RATIO Blood Urea Nitrogen 8 MG/DL Creatinine 0.91 MG/DL Random Glucose 79 MG/DL Calcium Level 8.5 MG/DL Magnesium Level 2.0 MG/DL Sodium Level 143 MEQ/L Potassium Level 3.2 MEQ/L Chloride Level 106 MEQ/L Carbon Dioxide Level 29.4 MEQ/L Anion Gap 8 MEQ/L Estimat Glomerular Filtration Rate 85 ML/MIN Troponin I LESS THAN 0.02 NG/ML Phenytoin (Dilantin) Level LESS THAN 0.4 MCG/ML Vital Signs Date Time Temp Pulse Resp B/P (MAP) Pulse Ox O2 Delivery O2 Flow Rate FiO2 06/11/17 00:55 86 18 108/58 (75) 97 Room Air 06/10/17 21:48 94 06/10/17 21:46 97.5 94 20 114/76 (89) 96 Narrative Course Patient is a 61-year-old male presenting to the emergency department for evaluation of chest pain. Patient was intoxicated appearing however he continued to state he had chest pain. He was initially seen by my attending physician. Patient was signed out to me. Labs are pending. Initial set of cardiac enzymes are negative. Potassium is 3.2, labs are otherwise unremarkable. Patient was placed in chest pain center at this time. Admit orders placed. Diagnosis Primary Impression: Chest pain Qualified Codes: R07.9 - Chest pain, unspecified Additional Impression: Alcoholism Admitting Information Admitting Physician Requests: Observation Condition: Stable Tracie Silvestre Jun 11, 2017 05:10
[2017-06-11 07:00] VITALS: BP 115/73; PULSE 76; RESP 21; TEMP 98.9; O2SAT 99
[2017-06-11 07:20] LABS: TROPONIN I LESS THAN 0.02 NG/ML (0.02-0.05)
[2017-06-11] MEDS ORDERED: SODIUM CHLORIDE 0.9% FLUSH 10 ML FLUSH IV FLUSH SCH (09:00)
[2017-06-11] MEDS ORDERED: PANTOPRAZOLE SOD 40 MG DELAYED RELEASE TAB PO SCH (09:00)
[2017-06-11 09:51] LABS: TROPONIN I LESS THAN 0.02 NG/ML (0.02-0.05)
--- NOTE | 2017-06-11 12:04 | HHI.HP ---
HPI Primary Care Physician No Primary Care Physician Chief Complaint Chest pain History of Present Illness 61-year-old male presents to the ER for further evaluation of chest pain. Onset last night "sometime." Characterizes as quick, onset stabbing. Location left anterior chest. No radiation. No associated symptoms of nausea, vomiting, dyspnea, or diaphoresis. No known precipitating or relieving factors. History is somewhat difficult to obtain requiring multiple prompting. Review of Systems General: No fatigue,weakness, fever, chills, recent illness HEENT: No [place], no vision changes CV: As stated above. No current chest pain or pressure. No known coronary artery disease. RESP: No SOB, cough, wheeze GI: No nausea, vomiting, bowel changes : No dysuria, urgency, frequency EXT: No lower leg edema, no paraesthesias MS: No discomfort or change in ROM. Requires wheelchair for mobility. NEURO: No change in memory, dizziness, LOC, motor/sensory deficits PSYCH: No anxiety, depression, suicidal ideation SKIN: No rashes, no concerning lesions Past Family Social History Allergies: Coded Allergies: acetaminophen (Verified Allergy, Severe, 06/02/17) ampicillin (Verified Allergy, Severe, 06/02/17) aspirin (Verified Allergy, Severe, 06/02/17) butorphanol (Verified Allergy, Severe, 06/02/17) chlordiazepoxide (Verified Allergy, Severe, 06/02/17) codeine (Verified Allergy, Severe, 06/02/17) diazepam (Verified Allergy, Severe, 06/02/17) divalproex sodium (Verified Allergy, Severe, 06/02/17) droperidol (Verified Allergy, Severe, 06/02/17) hydrocodone (Verified Allergy, Severe, 06/02/17) hydromorphone (Verified Allergy, Severe, 06/02/17) hydroxyzine (Verified Allergy, Severe, 06/02/17) ketorolac (Verified Allergy, Severe, 06/02/17) lidocaine (Verified Allergy, Severe, 06/02/17) lorazepam (Verified Allergy, Severe, 06/02/17) methylprednisolone (Verified Allergy, Severe, 06/02/17) metoclopramide (Verified Allergy, Severe, 06/02/17) nalbuphine (Verified Allergy, Severe, 06/02/17) ondansetron (Verified Allergy, Severe, 06/02/17) oxycodone (Verified Allergy, Severe, 06/02/17) penicillin G (Verified Allergy, Severe, 06/02/17) procaine (Verified Allergy, Severe, 06/02/17) prochlorperazine (Verified Allergy, Severe, 06/02/17) propranolol (Verified Allergy, Severe, 06/02/17) sumatriptan (Verified Allergy, Severe, 06/02/17) tramadol (Verified Allergy, Severe, 06/02/17) zolmitriptan (Verified Allergy, Severe, 06/02/17) Past Medical History CVA, type 2 diabetes, DVT, GERD, COPD, seizure disorder, pancreatitis Past Surgical History Hiatal hernia repair Reported Medications Reported Meds & Active Scripts Active Clindamycin (Clindamycin HCl) 300 Mg Cap 300 Mg PO TID 10 Days Gabapentin 100 Mg Cap 100 Mg PO TID Reported Ventolin Hfa 18 GM Inh (Albuterol Sulfate) 90 Mcg/Act Aer 2 Puff INH Q4-6H PRN Dilantin (Phenytoin Extended) 30 Mg Cap 30 Mg PO TID Active Ordered Medications Current Medications Medications (Trade) Dose Ordered Sig/Silvio Route Start Time Stop Time Status Last Admin (NS Flush) 2 ml UNSCH PRN IVF 06/10/17 23:45 Potassium Chloride/Dextrose/ Sod Cl 1,000 ml @ 100 mls/hr Q10H IV 06/11/17 05:00 06/11/17 06:48 (NS Flush) 2 ml BID IV FLUSH 06/11/17 09:00 06/11/17 09:21 (Protonix) 40 mg DAILY PO 06/11/17 09:00 06/11/17 09:21 (Nitrostat Sl) 0.4 mg Q5M PRN SL 06/11/17 05:00 Social History Reports history of CVA and ID. Endorses hyperlipidemia. Current smoker 1/4 pack daily. Endorses daily alcohol use. Reports regular use of marijuana. Homeless. States he is from [place], came here for bike week and race week. "Unable to meet up with friends therefore became homeless." Reports currently in process of getting back to [place]. Past cardiac testing Reports recent cardiac catheterization 3 months ago while in [place]. Reported to be normal. Endorses radial approach. Unable to give details around why cardiac catheterization was required. Physical Exam Vital Signs Vital Signs Date Time Temp Pulse Resp B/P (MAP) Pulse Ox O2 Delivery O2 Flow Rate FiO2 06/11/17 07:00 98.9 76 21 115/73 (87) 99 06/11/17 00:55 86 18 108/58 (75) 97 Room Air 06/10/17 21:48 94 06/10/17 21:46 97.5 94 20 114/76 (89) 96 Physical Exam GENERAL: Alert, unkempt, elderly male who appears older than stated age lying in bed holding a stuffed animal. HEAD: NC, AT NECK: Supple, no masses, trachea midline CV: RRR, without murmur, rub, gallop, no JVD, S1-S2 no S3-S4. No carotid or femoral bruits. RESP: Clear lungs throughout bilateral, no crackles, wheeze, rhonchi, symmetrical chest rise, nonlabored, able to speak in full sentences ABD: Soft, NT, ND, no masses, positive bowel tones EXT: Pulses +2x4, no dependent edema MS: Normal tone x4 extremities, no obvious deformities, full range of motion NEURO: CN II through CN XII grossly intact PSYCH: A+O x3, flat affect, appropriate speech SKIN: Normal turgor, normal texture Laboratory Laboratory Tests Test 06/11/17 01:25 06/11/17 06:35 06/11/17 09:07 White Blood Count 3.7 Red Blood Count 4.58 Hemoglobin 16.1 Hematocrit 46.3 Mean Corpuscular Volume 101.2 Mean Corpuscular Hemoglobin 35.3 Mean Corpuscular Hemoglobin Concent 34.9 Red Cell Distribution Width 15.5 Platelet Count 247 Mean Platelet Volume 6.9 CBC Comment AUTO DIFF Differential Total Cells Counted 100 Neutrophils % (Manual) 29 Lymphocytes % 49 Monocytes % 15 Eosinophils % 6 Basophils % 1 Neutrophils # (Manual) 1.1 Differential Comment FINAL DIFF MANUAL Platelet Estimate NORMAL Platelet Morphology Comment NORMAL Red Cell Morphology Comment NORMAL Prothrombin Time 10.0 Prothromb Time International Ratio 1.0 Blood Urea Nitrogen 8 Creatinine 0.91 Random Glucose 79 Calcium Level 8.5 Magnesium Level 2.0 Sodium Level 143 Potassium Level 3.2 Chloride Level 106 Carbon Dioxide Level 29.4 Anion Gap 8 Estimat Glomerular Filtration Rate 85 Troponin I LESS THAN 0.02 LESS THAN 0.02 LESS THAN 0.02 Phenytoin (Dilantin) Level LESS THAN 0.4 Total Creatine Kinase 126 143 Creatine Kinase MB 1.2 1.6 Result Diagram: 06/11/175 06/11/17 0125 Imaging Last 48 hours Impressions Chest X-Ray 06/10/17 [id number] Signed Impressions: Service Date/Time: Saturday, June 10, 2017 23:44 - CONCLUSION: No acute cardiopulmonary disease identified. Trace Alvarez MD Course EKG Normal sinus rhythm, no ST changes Caprini VTE Risk Assessment Caprini VTE Risk Assessment: Mod/High Risk (score >= 2) Caprini Risk Assessment Model Point Value = 1 Point Value = 2 Point Value = 3 Point Value = 5 Age 41-60 Minor surgery BMI > 25 kg/m2 Swollen legs Varicose veins or History of unexplained or recurrent spontaneous Oral contraceptives or hormone replacement Sepsis (< 1 month) Serious lung disease, including pneumonia (< 1 month) Abnormal pulmonary function Acute myocardial infarction Congestive heart failure (< 1 month) History of inflammatory bowel disease Medical patient at bed rest Age 61-74 Arthroscopic surgery Major open surgery (> 45 min) Laparoscopic surgery (> 45 min) Malignancy Confined to bed (> 72 hours) Immobilizing plaster cast Central venous access Age >= 75 History of VTE Family history of VTE Factor V Leiden Prothrombin [id number] Lupus anticoagulant Anticardiolipin antibodies Elevated serum homocysteine Heparin-induced thrombocytopenia Other congenital or acquired thrombophilia Stroke (< 1 month) Elective arthroplasty Hip, pelvis, or leg fracture Acute spinal cord injury (< 1 month) Prophylaxis Regimen Total Risk Factor Score Risk Level Prophylaxis Regimen 0-1 Low Early ambulation 2 Moderate Order ONE of the following: *Sequential Compression Device (SCD) *Heparin 5000 units SQ BID 3-4 Higher Order ONE of the following medications: *Heparin 5000 units SQ TID *Enoxaparin/Lovenox 40 mg SQ daily (WT < 150 kg, CrCl > 30 mL/min) *Enoxaparin/Lovenox 30 mg SQ daily (WT < 150 kg, CrCl > 10-29 mL/min) *Enoxaparin/Lovenox 30 mg SQ BID (WT < 150 kg, CrCl > 30 mL/min) AND/OR *Sequential Compression Device (SCD) 5 or more Highest Order ONE of the following medications: *Heparin 5000 units SQ TID (Preferred with Epidurals) *Enoxaparin/Lovenox 40 mg SQ daily (WT < 150 kg, CrCl > 30 mL/min) *Enoxaparin/Lovenox 30 mg SQ daily (WT < 150 kg, CrCl > 10-29 mL/min) *Enoxaparin/Lovenox 30 mg SQ BID (WT < 150 kg, CrCl > 30 mL/min) AND *Sequential Compression Device (SCD) Assessment and Plan Assessment and Plan #1 Atypical chest pain-admitted to chest pain center. Ruled out with 3 sets of EKGs, cardiac enzymes, monitor on telemetry. Seen and evaluated by Dr. Arik Boykin. No further cardiac testing is required especially as patient has reported recent normal cardiac catheterization 3 months ago. Plan is to discharge this afternoon, no changes in home medication regimen. Patient agreeable to plan of care. Ginette Bradley Jun 11, 2017 12:04
--- NOTE | 2017-06-11 12:26 | HHI.DCPOC ---
Discharge Care Plan Diagnosis: (1) Atypical chest pain (2) Tobacco abuse (3) Alcoholism Goals to Promote Your Health * To prevent worsening of your condition and complications * To maintain your health at the optimal level Directions to Meet Your Goals Take your medications as prescribed Follow your dietary instruction Follow activity as directed Keep your appointments as scheduled Take your immunizations and boosters as scheduled If your symptoms worsen call your PCP, if no PCP go to Urgent Care Center or Emergency Room Smoking is Dangerous to Your Health. Avoid second hand smoke Call the 24-hour hour crisis hotline for domestic abuse at Ginette Bradley Jun 11, 2017 12:26
--- NOTE | 2017-06-11 12:37 | EKG ---
Date Performed: 06/11/2017 Time Performed: 00:39:28 PTAGE: 61 years EKG: Sinus rhythm NORMAL ECG PREVIOUS TRACING : 04/12/2017 03.22 Since previous tracing, no significant change noted DOCTOR: Arik Boykin Interpretating Date/Time 06/11/2017 12:36:58
--- NOTE | 2017-06-11 12:46 | EKG ---
Date Performed: 06/11/2017 Time Performed: 06:39:24 PTAGE: 61 years EKG: Sinus rhythm POSSIBLE RIGHT VENTRICULAR CONDUCTION DELAY NONSPECIFIC T-WAVE ABNORMALITY BORDERLINE ECG PREVIOUS TRACING : 06/11/2017 00.39 Since previous tracing, no significant change noted DOCTOR: Arik Boykin Interpretating Date/Time 06/11/2017 12:45:58
== END 2017-06-11 14:59 | disposition home or self-care (01) ==
LOC: NEPD 20:58 → NEDA 06-11 05:07 → NEDH 06-11 08:26
PROVIDERS: ADMIT Internal Medicine Interventional Cardiology; ATTEND Internal Medicine Interventional Cardiology
DX: R07.89 Other chest pain (principal); F10.20 Alcohol dependence, uncomplicated; F12.90 Cannabis use, unspecified, uncomplicated; Z72.0 Tobacco use; J44.9 Chronic obstructive pulmonary disease, unspecified; E11.9 Type 2 diabetes mellitus without complications; E78.5 Hyperlipidemia, unspecified; G40.909 Epilepsy, unspecified, not intractable, without status epilepticus; I25.2 Old myocardial infarction; K21.9 Gastro-esophageal reflux disease without esophagitis; Z59.0 Homelessness; Z86.73 Personal history of transient ischemic attack (TIA), and cerebral infarction without residual deficits
CPT/HCPCS: 71045; 80048; 80185; 82550; 82552; 83735; 84484; 85007; 85027; 85610; 93005; 96360; 99285; G0378; J3480